=== PATIENT | female | born 1980 | race Caucasian/White ===

== ENCOUNTER 2016-03-25 10:41 | Emergency (ER) | payer OTHER ==
[2016-03-25 11:55] LABS: Hematocrit 41 % (35-47); Mean Corpuscular HGB Conc 34 g/dl (31-36); Mean Corpuscular Hemoglobin 33 pg (27-31); Mean Corpuscular Volume 96 fL (80-97); Mean Platelet Volume 9 um3 (7.4-10.4); Red Blood Count 4.27 10^6/ul (4.0-5.4); Red Cell Distribution Width 14 % (10.5-15); White Blood Count 7.4 10^3/ul (3.5-10.8)
[2016-03-25 12:06] LABS: Albumin 4.4 g/dL (3.2-5.2); BUN/Creatinine Ratio 7.6 (8-20); Calcium 10.1 mg/dL (8.6-10.3); EGFR African American 67.4 (>60); EGFR Non-African American 52.4 (>60); Globulin 3.2 g/dL (2-4); Magnesium 2.6 mg/dL (1.9-2.7); Potassium 4.2 mmol/L (3.5-5.0); Total Bilirubin 0.4 mg/dL (0.2-1.0); Total Protein 7.6 g/dL (6.4-8.9)
[2016-03-25 12:18] LABS: TSH (Thyroid Stimulating Horm) 4.02 mcIU/mL (0.34-5.60)
[2016-03-25] MEDS ORDERED: NS 0.9% 1000 ML* 2,000 ML IV ONE (13:58)
[2016-03-25 14:36] LABS: Urine Bilirubin Negative (Negative); Urine Glucose Negative (Negative); Urine Nitrite Negative (Negative)
[2016-03-25] MEDS ORDERED: Ibuprofen TAB* 600 MG PO ONE (14:41)
[2016-03-25 15:07] LABS: Benzodiazepine Urine Screen None Detected (None Detect)
--- NOTE | 2016-03-25 15:22 | ED ---
Tommy Aguirre Karl, scribed for Checo Goins MD on 03/25/16 at 1142 . Neurological HPI - HPI Summary HPI Summary: Pt is a 36 y/o female BIBA that presents to the ED c/o a seizure at approx 09: 30 this morning. Pt's father, at bedside, reported that he witness the seizure this morning after he visited the pt's house and she went to the bathroom. Father stated he visited the house and heard a "thump" in the bathroom at which point he entered and found his daughter face down on the floor convulsing. Per nursing note, pt arrives post ictal, repeditive speech, yawning frequently, and incontinent of urine. Pt potentially has not been taking her seizure medicine as prescribed per EMS due to there being more medication in the bottle than supposed to be at this time. Pt is also on siboxone and topiromax. Pt's father also noted that the pt stated she was having SMITH's before the seizure and that he noticed the pt has small bruise on her right arm and a scrape on her right side. Hx: seizures. - History of Current Complaint Chief Complaint: EDSeizure Stated Complaint: SEIZURE Time Seen by Provider: 03/25/16 11:35 Hx Obtained From: Family/Electrician Station Assistant Hx Last Menstrual Period: IUD Onset/Duration: Started hours ago, Resolved Timing: Intermittent Episodes Lasting: Onset Severity: Moderate Current Severity: None Seizure Severity: Moderate Number of Seizures: 1 Pain Intensity: 2 Pain Scale Used: 0-10 Numeric Associated Signs and Symptoms: Positive: Headache, Seizure - Additional Pertinent History Primary Care Physician: [id number] - Allergy/Home Medications Allergies/Adverse Reactions: Allergies Allergy/AdvReac Type Severity Reaction Status Date / Time No Known Allergies Allergy Verified 02/16/15 16:22 PMH/Surg Hx/FS Hx/Imm Hx Endocrine/Hematology History: Reports: Hx Thyroid Disease - Hypothyroid Denies: Hx Diabetes Cardiovascular History: Denies: Hx Hypertension Respiratory History: Denies: Hx Asthma, Hx Chronic Obstructive Pulmonary Disease (COPD) GI History: Denies: Hx Ulcer History: Reports: Other Problems/Disorders - Cervical Ca Psychiatric History: Reports: Hx Depression - Cancer History Cancer Type, Location and Year: Cervical cancer 2009 - Surgical History Surgery Procedure, Year, and Place: Cervical Cancer 2009, Infectious Disease History: Yes Infectious Disease History: Reports: Hx Hepatitis - Hepatitis C Denies: Hx Clostridium Difficile, Hx Human Immunodeficiency Virus (HIV), Hx of Known/Suspected MRSA, Hx Shingles, Hx Tuberculosis, Hx Known/Suspected VRE, Hx Known/Suspected VRSA, History Other Infectious Disease, Traveled Outside the [place] in Last 30 Days - Family History Known Family History: Positive: Cardiac Disease, Diabetes - Social History Alcohol Use: None Substance Use Type: Reports: None Hx Tobacco Use: Yes Smoking Status (MU): Heavy Every Day Tobacco Smoker Type: Cigarettes Amount Used/How Often: 1 ppd Length of Time of Smoking/Using Tobacco: 5 years Review of Systems Constitutional: Negative Eyes: Negative ENT: Negative Cardiovascular: Negative Respiratory: Negative Gastrointestinal: Negative Genitourinary: Negative Musculoskeletal: Negative Positive: Bruising Neurological: Other - seizure Positive: Headache Psychological: Normal All Other Systems Reviewed And Are Negative: Yes Physical Exam Triage Information Reviewed: Yes Vital Signs On Initial Exam: Initial Vitals Temp Pulse Resp BP Pulse Ox 97.7 F 84 28 104/60 97 03/25/16 11:01 03/25/16 11:01 03/25/16 11:01 03/25/16 11:01 03/25/16 11:01 Vital Signs Reviewed: Yes Appearance: Positive: Well-Appearing, No Pain Distress Skin: Positive: Warm, Skin Color Reflects Adequate Perfusion, Dry, Other - abrasion on right side of thorax, ecchymosis on right upper back Head/Face: Positive: Normal Head/Face Inspection Eyes: Positive: EOMI - 2-3 mm, HERNAN ENT: Positive: Normal ENT inspection Neck: Positive: Supple, Nontender Respiratory/Lung Sounds: Positive: Clear to Auscultation, Breath Sounds Present Cardiovascular: Positive: RRR Abdomen Description: Positive: Nontender, Soft Bowel Sounds: Positive: Present Musculoskeletal: Positive: Normal Neurological: Positive: Other - twitching, slurred speech Psychiatric: Positive: Normal, Affect/Mood Appropriate - [place] Coma Scale Coma Scale Total: 15 Diagnostics - Vital Signs Vital Signs Temp Pulse Resp BP Pulse Ox 03/25/16 11:01 97.7 F 84 28 104/60 97 - Laboratory Lab Results: Lab Results 03/25/16 03/25/16 03/25/16 Range/Units 10:55 10:55 10:55 WBC 7.4 (3.5-10.8) 10^3/ul RBC 4.27 (4.0-5.4) 10^6/ul Hgb 14.0 (12.0-16.0) g/dl Hct 41 (35-47) % MCV 96 (80-97) fL MCH 33 H (27-31) pg MCHC 34 (31-36) g/dl RDW 14 (10.5-15) % Plt Count 200 (150-450) 10^3/ul MPV 9 (7.4-10.4) um3 Neut % (Auto) 88.7 H (38-83) % Lymph % (Auto) 8.2 L (25-47) % Parker % (Auto) 2.7 (1-9) % Eos % (Auto) 0.2 (0-6) % Baso % (Auto) 0.2 (0-2) % Absolute Neuts (auto) 6.5 (1.5-7.7) 10^3/ul Absolute Lymphs (auto) 0.6 L (1.0-4.8) 10^3/ul Absolute Monos (auto) 0.2 (0-0.8) 10^3/ul Absolute Eos (auto) 0 (0-0.6) 10^3/ul Absolute Basos (auto) 0 (0-0.2) 10^3/ul Absolute Nucleated RBC 0 10^3/ul Nucleated RBC % 0.1 INR (Anticoag Therapy) 0.95 (0.89-1.11) Sodium 135 (133-145) mmol/L Potassium 4.2 (3.5-5.0) mmol/L Chloride 110 (101-111) mmol/L Carbon Dioxide 16 L (22-32) mmol/L Anion Gap 9 (2-11) mmol/L BUN 9 (6-24) mg/dL Creatinine 1.18 H (0.51-0.95) mg/dL Est GFR ( Amer) 67.4 (>60) Est GFR (Non-Af Amer) 52.4 (>60) BUN/Creatinine Ratio 7.6 L (8-20) Glucose 112 H (70-100) mg/dL Lactic Acid (0.5-2.0) mmol/L Calcium 10.1 (8.6-10.3) mg/dL Magnesium 2.6 (1.9-2.7) mg/dL Total Bilirubin 0.40 (0.2-1.0) mg/dL AST 18 (13-39) U/L ALT 12 (7-52) U/L Alkaline Phosphatase 46 (34-104) U/L Total Creatine Kinase 65 (10-223) U/L Total Protein 7.6 (6.4-8.9) g/dL Albumin 4.4 (3.2-5.2) g/dL Globulin 3.2 (2-4) g/dL Albumin/Globulin Ratio 1.4 (1-3) TSH 4.02 (0.34-5.60) mcIU/mL Urine Color Urine Appearance Urine pH (5-9) Ur Specific [place] (1.010-1.030) Urine Protein (Negative) Urine Ketones (Negative) Urine Blood (Negative) Urine Nitrate (Negative) Urine Bilirubin (Negative) Urine Urobilinogen (Negative) Ur Leukocyte Esterase (Negative) Urine Glucose (Negative) Urine Opiates Screen (None Detect) Ur Barbiturates Screen (None Detect) Ur Phencyclidine Scrn (None Detect) Ur Amphetamines Screen (None Detect) U Benzodiazepines Scrn (None Detect) Urine Cocaine Screen (None Detect) U Cannabinoids Screen (None Detect) 03/25/16 03/25/16 03/25/16 Range/Units 10:55 14:28 14:28 WBC (3.5-10.8) 10^3/ul RBC (4.0-5.4) 10^6/ul Hgb (12.0-16.0) g/dl Hct (35-47) % MCV (80-97) fL MCH (27-31) pg MCHC (31-36) g/dl RDW (10.5-15) % Plt Count (150-450) 10^3/ul MPV (7.4-10.4) um3 Neut % (Auto) (38-83) % Lymph % (Auto) (25-47) % Parker % (Auto) (1-9) % Eos % (Auto) (0-6) % Baso % (Auto) (0-2) % Absolute Neuts (auto) (1.5-7.7) 10^3/ul Absolute Lymphs (auto) (1.0-4.8) 10^3/ul Absolute Monos (auto) (0-0.8) 10^3/ul Absolute Eos (auto) (0-0.6) 10^3/ul Absolute Basos (auto) (0-0.2) 10^3/ul Absolute Nucleated RBC 10^3/ul Nucleated RBC % INR (Anticoag Therapy) (0.89-1.11) Sodium (133-145) mmol/L Potassium (3.5-5.0) mmol/L Chloride (101-111) mmol/L Carbon Dioxide (22-32) mmol/L Anion Gap (2-11) mmol/L BUN (6-24) mg/dL Creatinine (0.51-0.95) mg/dL Est GFR ( Amer) (>60) Est GFR (Non-Af Amer) (>60) BUN/Creatinine Ratio (8-20) Glucose (70-100) mg/dL Lactic Acid 3.6 H* (0.5-2.0) mmol/L Calcium (8.6-10.3) mg/dL Magnesium (1.9-2.7) mg/dL Total Bilirubin (0.2-1.0) mg/dL AST (13-39) U/L ALT (7-52) U/L Alkaline Phosphatase (34-104) U/L Total Creatine Kinase (10-223) U/L Total Protein (6.4-8.9) g/dL Albumin (3.2-5.2) g/dL Globulin (2-4) g/dL Albumin/Globulin Ratio (1-3) TSH (0.34-5.60) mcIU/mL Urine Color Yellow Urine Appearance Clear Urine pH 6.0 (5-9) Ur Specific [place] 1.026 (1.010-1.030) Urine Protein Negative (Negative) Urine Ketones 2+ H (Negative) Urine Blood Negative (Negative) Urine Nitrate Negative (Negative) Urine Bilirubin Negative (Negative) Urine Urobilinogen Negative (Negative) Ur Leukocyte Esterase Negative (Negative) Urine Glucose Negative (Negative) Urine Opiates Screen None detected (None Detect) Ur Barbiturates Screen None detected (None Detect) Ur Phencyclidine Scrn None detected (None Detect) Ur Amphetamines Screen None detected (None Detect) U Benzodiazepines Scrn None detected (None Detect) Urine Cocaine Screen None detected (None Detect) U Cannabinoids Screen None detected (None Detect) Result Diagrams: 03/25/16 10:55 03/25/16 10:55 Lab Statement: Any lab studies that have been ordered have been reviewed, and results considered in the medical decision making process. Course/Dx - Course Course Of Treatment: Ms. Celaya presented after a witnessed seizure at home. She presented post-ictal and slowly but gradually improved. Her W/U is negative for a precipitating factor and I anticipate D/C after she improves a bit more. She should F/U with her neurologist for any medication changes. - Diagnoses Provider Diagnoses: Breakthrough seizure - Physician Notifications Discussed Care of Patient With: Dr. Rucker - [id number], Dr. Jnasen - Change of shift. Discharge - Discharge Plan Condition: Stable Disposition: HOME Patient Education Materials: Recurrent Seizures in Adults (ED) Referrals: Jerel Raymond MD [Primary Care Provider] - Additional Instructions: Please follow up with your neurologist. Return to the emergency department for changing or worsening symptoms. The documentation as recorded by the Tommy harden Karl accurately reflects the service I personally performed and the decisions made by Buster glez Richard L, MD.
--- NOTE | 2016-03-25 15:34 | RAD ---
INDICATION: Trauma. COMPARISON: There are no prior studies available for comparison. TECHNIQUE: 5 views of the lumbar spine were obtained including lateral, oblique, AP and a coned-down lateral view of the lumbar sacral junction. FINDINGS: The vertebra are in normal alignment. No fracture is seen. There is moderate disc space narrowing and endplate hypertrophic changes at the L5-S1 level consistent with moderate degenerative disc disease. There is a T-shaped IUD which projects over the pelvis. IMPRESSION: NO EVIDENCE FOR FRACTURE.
[2016-03-25 16:31] VITALS: BP 97/61
== END 2016-03-25 16:42 | disposition home or self-care (01) ==
LOC: ED 10:41
DX: G40.909 Epilepsy, unspecified, not intractable, without status epilepticus (principal); E03.9 Hypothyroidism, unspecified; Z85.41 Personal history of malignant neoplasm of cervix uteri; F32.9 Major depressive disorder, single episode, unspecified; F17.210 Nicotine dependence, cigarettes, uncomplicated
CPT/HCPCS: 36415; 72110; 80053; 80177; 80307; 81003; 82550; 83605; 83735; 84443; 85025; 85610; 99285; A9270-GY

== ENCOUNTER 2016-05-27 17:18 | Emergency (ER) | payer OTHER ==
[2016-05-27 17:37] VITALS: BP 107/76
[2016-05-27] MEDS ORDERED: Ibuprofen TAB* 400 MG PO ONE (17:54)
--- NOTE | 2016-05-27 17:54 | UC ---
Throat Pain/Nasal [place] HPI - HPI Summary HPI Summary: complaint of nasal congestion and cough that started 2 days ago constant headache nauseated and vomited 2x last nioght fever of 102.7 entire body feels achy, extremely foatgiued denies diarrhea unable to smoke her usual number of cigarettes- hearing wheezing - sometimes uncontrollable coughing taking tylenol with some relief-last dose 1:00 today son has influenza - History of Current Complaint Chief Complaint: UCRespiratory Stated Complaint: FEVER Time Seen by Provider: 05/27/16 17:48 Hx Obtained From: Patient Hx Last Menstrual Period: IUD - Allergies/Home Medications Allergies/Adverse Reactions: Allergies Allergy/AdvReac Type Severity Reaction Status Date / Time No Known Allergies Allergy Verified 05/27/16 17:37 Home Medications: Home Medications Acetaminophen [Mapap] 1,000 mg PO PRN 05/27/16 [History] Buprenorphine/Naloxone SL TAB* [Suboxone 8-2 mg SL TAB*] 05/27/16 [History] Levothyroxine TAB* [Synthroid 75 MCG TAB*] 75 mcg PO DAILY 05/27/16 [History Confirmed 05/27/16] Topiramate TAB(*) [Topamax 25 MG tab] 4 tab PO BEDTIME 05/27/16 [History Confirmed 05/27/16] Topiramate TAB(*) [Topamax 25 MG tab] 50 mg PO QAM 05/27/16 [History Confirmed 05/27/16] PMH/Surg Hx/FS Hx/Imm Hx Previously Healthy: Yes Endocrine History Of: Reports: Thyroid Disease - HYPOTHYROID Denies: Diabetes Cardiovascular History Of: Denies: Cardiac Disorders, Hypertension, Pacemaker/ICD Respiratory History Of: Denies: COPD, Asthma GI/ History Of: Denies: Ulcer, Renal Disease Psychological History Of: Reports: Depression Cancer History Of: Reports: Cervical Cancer Other History Of: Hepatitis C - Surgical History Surgical History: Yes Surgery Procedure, Year, and Place: Cervical Cancer 2009 - Family History Known Family History: Positive: Cardiac Disease, Diabetes Negative: Hypertension - Social History Occupation: Employed Full-time Lives: With Family Alcohol Use: None Substance Use Type: None Smoking Status (MU): Current Every Day Smoker Type: Cigarettes Amount Used/How Often: 1 ppd Length of Time of Smoking/Using Tobacco: 5 years - Immunization History Most Recent Influenza Vaccination: 2014 Most Recent Tetanus Shot: 2014 Most Recent Pneumonia Vaccination: unknown Review of Systems Constitutional: Fever, Chills, Fatigue Skin: Negative Eyes: Negative ENT: Nasal Discharge Respiratory: Cough Cardiovascular: Negative Gastrointestinal: Vomiting Genitourinary: Negative Motor: Negative Neurovascular: Negative Musculoskeletal: Negative Neurological: Headache Psychological: Negative All Other Systems Reviewed And Are Negative: Yes Physical Exam Triage Information Reviewed: Yes Appearance: Well-Nourished, Ill-Appearing, Obese Vital Signs: Initial Vital Signs Temp 98.1 F 05/27/16 17:33 Pulse 85 05/27/16 17:33 Resp 16 05/27/16 17:33 BP 107/76 05/27/16 17:33 Pulse Ox 98 05/27/16 17:33 Vital Signs Reviewed: Yes Eyes: Positive: Conjunctiva Clear ENT: Positive: Pharyngeal erythema, Nasal congestion, Nasal drainage, TMs normal Neck: Positive: No Lymphadenopathy Respiratory: Positive: Normal breath sounds, No respiratory distress, No accessory muscle use, Wheezing - both upper lobes Cardiovascular: Positive: RRR, No Murmur, Pulses Normal Abdomen Description: Positive: Nontender, No Organomegaly, Soft. Negative: CVA Tenderness (R), CVA Tenderness (L), Distended, Guarding Bowel Sounds: Positive: Present Musculoskeletal: Positive: No Edema Neurological: Positive: Alert Psychological Exam: Normal Skin Exam: Normal Throat Pain/Nasal Course/Dx - Differential Dx/Diagnosis Differential Diagnosis/HQI/PQRI: Influenza, URI, Other - viral syndrome Provider Diagnoses: influenza Discharge - Discharge Plan Condition: Stable Disposition: HOME Prescriptions: Albuterol HFA INHALER* [Ventolin HFA Inhaler*] 2 puff INH Q4H PRN #1 mdi PRN Reason: Wheezing Ondansetron HCl [Zofran 4 MG TAB] 4 mg PO Q6HR PRN #12 tab PRN Reason: Nausea Spacer/Aerosol-Holding Chamber [Aerochamber Mv] 1 mis XX Q4HR #1 mis Patient Education Materials: Influenza (ED) Forms: *Work Release Referrals: Jerel Raymond MD [Primary Care Provider] - Additional Instructions: Use your albuterol inhaler every 4-6 hours when needed for wheezing, shortness of breath or uncontrolled coughing. take zofran as needed for nausea Increase fluids and rest Please review your discharge instructions. If your symptoms do not improve please call your primary care provider or return to urgent care. TREATING THE FLU (Influenza) What is the Flu? Influenza, or "flu," is an infection of the breathing tubes and lungs. Flu happens mostly in late fall, winter, or early spring. It is very easily spread from one person to another by coughing and sneezing. The flu affects people of all ages. Symptoms Might Include: Stuffed up or runny nose Cough which may be worse at night that lasts for one to two weeks Fever especially the first 2 days and which may go up and down Headache and muscle aches Mild sore throat Poor appetite Tiredness Influenza (Flu) Vaccine Much of the illness and caused by influenza can be prevented by annual flu vaccination. It is especially recommended for people who are at high risk. Those at higher risk include all people aged 65 years or older and people of any age with chronic diseases of the heart, lung or kidneys, diabetes, immunosuppression, or severe forms of anemia. Other high-risk groups are, women who will be more than 3 months during the flu season, and children. Treatment Recommendations: Take acetaminophen (Tylenol, etc.) for aches and fever. Do not ever give aspirin to children. Drink lots of fluids. Use a cool-mist humidifier night and day if it helps you. Keep room at a comfortable temperature for you. Do not overheat the room. Do not overdress. Do not smoke. Get as much rest as you can. Call Your Doctor or Return Here IF: You have a fever that lasts for more than three days. You have trouble breathing. You begin to cough up green, yellow, or red mucous. Your cough gets worse or you have chest pain with coughing or deep breathing. You start to have any other symptoms that worry you.
[2016-05-27] MEDS ORDERED: Ondansetron TAB* 4 MG PO ONE (17:58)
[2016-05-27] MEDS ORDERED: Albuterol/Ipratropium NEB.SOL* Albuterol 2.5 MG/Ipratropium 0.5 MG 3 ML INH ONE (17:59)
[2016-05-27] MEDS ORDERED: Ondansetron ODT TAB* 4 MG ONE (18:13)
[2016-05-27] MEDS ORDERED: Ondansetron ODT TAB* 4 MG PO ONE (18:25)
== END 2016-05-27 18:41 | disposition home or self-care (01) ==
LOC: UCEAST 17:18
DX: J11.1 Influenza due to unidentified influenza virus with other respiratory manifestations (principal); E03.9 Hypothyroidism, unspecified; E66.9 Obesity, unspecified; F17.210 Nicotine dependence, cigarettes, uncomplicated
CPT/HCPCS: 87502; 99213; A9270-GY; G0463

== ENCOUNTER 2017-06-29 10:40 | Observation (INO) | payer OTHER ==
[2017-06-29] MEDS ORDERED: LORazepam INJ* 2 MG/ML 1 ML VIAL ONE (10:58)
[2017-06-29] MEDS ORDERED: NS 0.9% 1000 ML* 1,000 ML IV ONE ×2 (11:00→11:01)
[2017-06-29] MEDS ORDERED: LORazepam INJ* 2 MG/ML 1 ML VIAL IV PUSH ONE (11:03)
[2017-06-29 11:16] LABS: ABS Basophils 0 10^3/ul (0-0.2); ABS Eosinophils 0.1 10^3/ul (0-0.6); ABS Lymphocytes 1.7 10^3/ul (1.0-4.8); ABS Monocytes 0.3 10^3/ul (0-0.8); ABS Neutrophils 4.6 10^3/ul (1.5-7.7); ABS Nucleated RBC 0 10^3/ul; Eosinophil % 1.2 % (0-6); Hematocrit 44 % (35-47); Hemoglobin 14.7 g/dl (12.0-16.0); Lymphocyte % 25.3 % (25-47); Mean Corpuscular HGB Conc 34 g/dl (31-36); Mean Corpuscular Hemoglobin 33 pg (27-31); Mean Corpuscular Volume 99 fL (80-97); Mean Platelet Volume 7.4 um3 (7.4-10.4); Nucleated Red Blood Cells % 0; Platelet Count 233 10^3/ul (150-450); Red Blood Count 4.41 10^6/ul (4.0-5.4); Red Cell Distribution Width 14 % (10.5-15); White Blood Count 6.7 10^3/ul (3.5-10.8)
[2017-06-29] MEDS ORDERED: levETIRAcetam IV* 1,000 MG in NS 0.9% 100 ML* 100 ML IVPB ONE (11:30)
--- NOTE | 2017-06-29 12:23 | RAD ---
INDICATION: Status epilepticus. COMPARISON: Comparison is made with a prior CT of the brain from February 14, 2016. TECHNIQUE: Contiguous axial sections of the brain were obtained from the skull base to the vertex without contrast. FINDINGS: The ventricles, cisterns and sulci are within normal limits. No significant focal abnormality or mass effect is seen. There is no evidence for hemorrhage. No significant focal osseous abnormality is seen. The visualized portion of the paranasal sinuses and mastoid air cells appear clear. IMPRESSION: NO EVIDENCE FOR ACUTE INTRACRANIAL ABNORMALITY.
--- NOTE | 2017-06-29 12:38 | ED ---
Grady Aguirre Stephanie, scribed for Giancarlo Smyth MD on 06/29/17 at 1107 . Neurological HPI - HPI Summary HPI Summary: The pt is a 37 y/o F BIBA to the ED with c/o seizure that occurred at 10:30 today. Per , the pt had a seizure at home and when [facility] arrived she had another one that lasted 30 seconds. Symptoms include fatigue and SMITH. She denies falling. The pt has a hx of seizures. She states this seizure is different from past seizures. - History of Current Complaint Stated Complaint: SEIZURE Time Seen by Provider: 06/29/17 10:51 Hx Obtained From: Patient, Family/Hotel Server, EMS Hx Last Menstrual Period: IUD Onset/Duration: Sudden Onset, Started hours ago Timing: Intermittent Episodes Lasting: - seconds Current Severity: Moderate Number of Seizures: 2 Neurological Deficit Location: Generalized Headache Location: Diffuse (Right), Diffuse (Left) Seizure Character: Generalized Aggravating: Nothing Alleviating: Nothing Associated Signs and Symptoms: Positive: Headache, Seizure - Additional Pertinent History Primary Care Physician: [id number] - Allergy/Home Medications Allergies/Adverse Reactions: Allergies Allergy/AdvReac Type Severity Reaction Status Date / Time No Known Allergies Allergy Verified 06/29/17 11:02 Home Medications: Home Medications Buprenorphine HCl/Naloxone HCl [Suboxone 8 mg-2 mg Sl Film] 0.5 tab.sl SL QPM [History Confirmed 06/29/17] PMH/Surg Hx/FS Hx/Imm Hx Endocrine/Hematology History: Reports: Hx Thyroid Disease - HYPOTHYROID Denies: Hx Diabetes Cardiovascular History: Denies: Hx Hypertension, Hx Pacemaker/ICD Respiratory History: Denies: Hx Asthma, Hx Chronic Obstructive Pulmonary Disease (COPD) GI History: Denies: Hx Ulcer History: Reports: Other Problems/Disorders - Cervical Ca Denies: Hx Renal Disease Sensory History: Denies: Hx Hearing Aid Psychiatric History: Reports: Hx Depression Denies: Hx Panic Disorder - Cancer History Cancer Type, Location and Year: Cervical cancer 2009 - Surgical History Surgery Procedure, Year, and Place: Cervical Cancer 2009 Infectious Disease History: Reports: Hx Hepatitis - Hepatitis C Denies: Hx Clostridium Difficile, Hx Human Immunodeficiency Virus (HIV), Hx of Known/Suspected MRSA, Hx Shingles, Hx Tuberculosis, Hx Known/Suspected VRE, Hx Known/Suspected VRSA, History Other Infectious Disease, Traveled Outside the [place] in Last 30 Days - Family History Known Family History: Positive: Cardiac Disease, Diabetes Negative: Hypertension - Social History Occupation: Unemployed Lives: With Family Alcohol Use: None Substance Use Type: Reports: None Hx Tobacco Use: Yes Smoking Status (MU): Current Every Day Smoker Type: Cigarettes Amount Used/How Often: 1 ppd Length of Time of Smoking/Using Tobacco: 5 years Review of Systems Positive: Fatigue. Negative: Fever Positive: Headache All Other Systems Reviewed And Are Negative: Yes Physical Exam - Summary Physical Exam Summary: Appearance: Mildly ill-appearing, mild/moderate pain distress, not incontinent, currently post-ictal Skin: warm, dry, reflects adequate perfusion Head/face: Involuntary twitching both sides of face Eyes: EOMI, HERNAN ENT: Severely dry mucous membranes Neck: supple, non-tender Respiratory: CTA, breath sounds present Cardiovascular: RRR, pulses symmetrical Abdomen: non-tender, soft Bowel Sounds: present Musculoskeletal: normal, strength/ROM intact, no joint pain Neuro: normal, sensory motor intact, A&Ox3 Triage Information Reviewed: Yes Vital Signs On Initial Exam: Initial Vitals Resp 20 06/29/17 11:03 Vital Signs Reviewed: Yes Diagnostics - Vital Signs Vital Signs Temp Pulse Resp BP Pulse Ox 06/29/17 11:19 98.7 F 86 16 105/52 99 06/29/17 11:03 20 - Laboratory Lab Results: Lab Results 06/29/17 06/29/17 06/29/17 Range/Units 11:08 11:08 11:08 WBC 6.7 (3.5-10.8) 10^3/ul RBC 4.41 (4.0-5.4) 10^6/ul Hgb 14.7 (12.0-16.0) g/dl Hct 44 (35-47) % MCV 99 H (80-97) fL MCH 33 H (27-31) pg MCHC 34 (31-36) g/dl RDW 14 (10.5-15) % Plt Count 233 (150-450) 10^3/ul MPV 7.4 (7.4-10.4) um3 Neut % (Auto) 69.1 (38-83) % Lymph % (Auto) 25.3 (25-47) % [place] % (Auto) 4.2 (0-7) % Eos % (Auto) 1.2 (0-6) % Baso % (Auto) 0.2 (0-2) % Absolute Neuts (auto) 4.6 (1.5-7.7) 10^3/ul Absolute Lymphs (auto) 1.7 (1.0-4.8) 10^3/ul Absolute Monos (auto) 0.3 (0-0.8) 10^3/ul Absolute Eos (auto) 0.1 (0-0.6) 10^3/ul Absolute Basos (auto) 0 (0-0.2) 10^3/ul Absolute Nucleated RBC 0 10^3/ul Nucleated RBC % 0 Sodium Pending Potassium Pending Chloride Pending Carbon Dioxide Pending Anion Gap Pending BUN Pending Creatinine Pending Est GFR ( Amer) Pending Est GFR (Non-Af Amer) Pending BUN/Creatinine Ratio Pending Glucose Pending Calcium Pending Ionized Calcium 4.71 (4.65-5.28) mg/dL Phosphorus 2.0 L (2.5-5.0) mg/dL Magnesium 2.6 (1.9-2.7) mg/dL Total Creatine Kinase 87 (10-223) U/L TSH 8.36 H (0.34-5.60) mcIU/mL Free T4 Pending Free T3 Cancelled Total T3 Pending Result Diagrams: 06/29/17 11:08 06/29/17 11:08 Lab Statement: Any lab studies that have been ordered have been reviewed, and results considered in the medical decision making process. Re-Evaluation - Re-Evaluation First Eval Change: Improved - After Ativan myoclonus has gone away and mental status has improved Course/Dx - Course Course Of Treatment: Patient arrived after 2 seizures having significant myoclonus and alteration of mental status. She was given Ativan which actually improved her mental status and resolved the mild clonus. I discussed the case with neurology and we loaded her with IV Keppra. CT scan was unrevealing. CKs are not elevated. Hospitalist consulted and will see the patient in the ER for admission. - Differential Dx Differential Diagnoses Neuro: Positive: Drug Toxicity, Encephalitis, Metabolic Abnormality, Seizure Disorder - Diagnoses Provider Diagnoses: Status epilepticus, Generalized convulsive seizure - Physician Notifications Discussed Care Of Patient With: Jennie Hesterda Time Discussed With Above Provider: 11:31 Instructed by Provider To: Admit As Inpatient - Critical Care Time Critical Care Time: 30-74 min - Critical care time is exclusive of separately billable procedures Discharge - Sign-Out/Discharge Documenting (check all that apply): Discharge/Admit/Transfer - Admit - Discharge Plan Condition: Stable Disposition: ADMITTED TO [facility] Referrals: Jerel Raymond MD [Primary Care Provider] - - Billing Disposition and Condition Condition: STABLE Disposition: [facility] [place] The documentation as recorded by the Grady harden Stephanie accurately reflects the service I personally performed and the decisions made by Libra glez Kirk, MD.
[2017-06-29] MEDS ORDERED: Buprenorphine/Naloxone 8-2 MG SL TAB* 1 TAB SL SCH ×3 (13:00→21:00)
[2017-06-29] MEDS ORDERED: BuPROPion XL* 150 MG TAB.XL PO SCH (13:00)
[2017-06-29 13:19] LABS: EGFR Non-African American 51.6 (>60)
[2017-06-29] MEDS: Gabapentin CAP(*) 300 MG PO SCH ×3 (14:37→20:26)
[2017-06-29] MEDS: Buprenorphine/Naloxone 8-2 MG SL TAB* 1 TAB SL SCH (14:38)
--- NOTE | 2017-06-29 15:49 | HP ---
HISTORY AND PHYSICAL: DATE OF ADMISSION: 06/29/17 ADMITTING PROVIDER: Messi Gallagher MD PRIMARY CARE PROVIDER: Formerly, Jerel Raymond; currently, Dr. Rito Rodriguze. OUTPATIENT NEUROLOGIST: Dr. John. CHIEF COMPLAINT: Observed seizures. HISTORY OF PRESENT ILLNESS: Gerardo Celaya is a 37-year-old female with a past medical history of epilepsy, former IV drug use, currently on Suboxone, depression, hypothyroidism, who was observed morning of admission by her 18-year -old son having a suspected seizure. EMS was called. She had postictal confusion and had a 30- second episode of twitching that was observed by EMS. On arrival to emergency room, Dr. Smyth gave 2 mg of Ativan given her myoclonic twitching, which improved. The neurologist, Dr. Madison was consulted and recommended loading with 1 g of Keppra, CT head, admission and EEG. She referred to hospitalist service for admission. The patient is still somewhat confused, oriented to name, [facility], 2017, thinks it is April, could not remember the name of the vice president fixed income or the events of the day. The patient denies any new medications. She last saw Dr. John several months ago. The patient reported started Topamax approximately six months ago. Last seizure was "a few months ago." The patient denies any fever, chills, chest pain or shortness of breath. Does have some chronic back pains and some left lower quadrant pains. CT of the head in the emergency room demonstrates no acute intracranial abnormality. She now states that she was stung by a bee or a wasp yesterday, the day prior to admission, and also that one of her other seizures was preceded by a bee sting, although not every seizure has been preceded by a bee sting. PAST MEDICAL HISTORY: Epilepsy, history of IV drug use, currently on Suboxone, hypothyroidism, anxiety and depression, current smoker one pack per day. MEDICATIONS: Include: 1. Suboxone 8-2 mg sublingual tab, one tab in the morning and half tab at night. 2. Albuterol 2 puffs inhaled q.4 hours p.r.n. 3. Topamax 50 mg p.o. b.i.d. 4. Synthroid 75 mcg p.o. daily. 5. Gabapentin 600 mg p.o. q.i.d. 6. Bupropion 300 mg p.o. daily. ALLERGIES: No known drug allergies. FAMILY HISTORY: Mother and father both with depression. Her youngest son age 6 of seizures. She has three other sons that she lives with who are in good health. SOCIAL HISTORY: The patient smokes one pack per day. Denies significant alcohol abuse history or drinking, history of IV heroin abuse. She lives with her three children. She is a homemaker. Her father, Subhash Juan, is her medical surrogate. The patient is a full code. REVIEW OF SYSTEMS: A complete 14-point review of systems is negative except as per HPI though she is limited by short-term memory loss. PHYSICAL EXAMINATION GENERAL APPEARANCE: No acute distress. VITAL SIGNS: Temperature 98.7, pulse rate 86, respiratory rate 16 to 20, satting 99% on room air, and blood pressure 105/52. HEENT: Normocephalic, atraumatic. Pupils are equally round and reactive to light. Extraocular motions intact. No scleral icterus. Mucous membranes moist. NECK: Supple. No neck rigidity. PULMONARY: Clear to auscultation bilaterally with no wheezing, rales or rhonchi. CARDIOVASCULAR: Regular rate and rhythm. No murmurs, rubs or gallops. ABDOMEN: Soft, nondistended. Mild tenderness in the left lower quadrant. EXTREMITIES: Warm and well perfused. No peripheral edema. NEUROLOGIC: Cranial nerves II through XII intact. Brass Cutter strength 5/5. Hip flexion, dorsiflexion and plantar flexion of the feet 5/5. Sensation intact. The patient is oriented to place and name, but not month. She is oriented to 2018, but not present. DIAGNOSTIC STUDIES/LAB DATA: White count 6.7, hemoglobin 14.7, hematocrit 44. RDW 14, MCV 99. Ionized calcium 4.7, phosphorus 2.0, magnesium 2.6. CK 87. TSH 8.36. Imaging: CT head demonstrates no acute process. ASSESSMENT AND PLAN: Gerardo Celaya is a 37-year-old female with a past medical history of epilepsy, former IV drug use, on Suboxone, anxiety and depression, presenting with two seizures, one observed with EMS, was stung by a bee the day prior to admission, which seemed to have been a trigger in the past. She is on a low dose of Topamax. Appreciate Neurology, Dr. Madison's recommendations. She has been loaded with Keppra, we will get an EEG. CT head was without acute process. She is being admitted to observation status. We will continue her gabapentin, which if interrupted can cause seizures with abrupt withdrawal. She is on 600 q.i.d. We will continue Wellbutrin 300 mg for anxiety and depression. Continue her Synthroid 75 mcg daily. Her TSH is slightly elevated at 8.36. We will add a total T3 and free T4. We will follow up on her urine drug screen and get a BMP. She is being admitted to observation status. She is a full code. Her medical surrogate is Subhash Juan. She can eat a regular diet. We will continue her Suboxone one tab in the morning and half tab at night, if formulary can provide. [id number]/[facility] #: [id number] MTDD
[2017-06-29] MEDS ORDERED: Acetaminophen TAB* 325 MG PO PRN (17:30)
--- NOTE | 2017-06-29 18:51 | CONS ---
CONSULTATION REPORT: DATE OF CONSULT: 06/29/17 CONSULTING PHYSICIANS: 1. Messi Gallagher MD 2. Giancarlo Smyth MD REASON FOR CONSULT: Neurology was consulted to evaluate for seizures. The history was obtained by the patient and by reviewing the electronic medical records. CHIEF COMPLAINT: Seizure. HISTORY OF PRESENT ILLNESS: Gerardo Celaya is a 37-year-old right-handed female with history of former narcotic dependency, who is currently on Suboxone , questionable history of epilepsy since approximately 1-2 years ago after the of her 6-year-old child who due to seizures. She presented this morning with a breakthrough seizure. The patient cannot recall the incident. The patient stated that her 16-year-old son may have witnessed generalized seizure-like activity and called EMS. She denied any tongue laceration or urinary incontinence. This occurred at approximately 1030 today. The seizure activity was reported to last about 1 minute. She complained of fatigue and headache following the seizure. The patient then had another breakthrough seizure in the ED and was given 2 mg of Ativan. She had myoclonic jerks of the upper and lower extremities lasting for 30-60 seconds. After the Ativan, the described myoclonic jerks of the upper and lower extremities resolved. She was loaded with Keppra in the ED. She had a CT head that was unremarkable. The patient has no family history of epilepsy. Her previous history prior to this presentation was 4 months ago. She was evaluated by Dr. Gato John, Neurology, in the past. DIAGNOSTIC STUDIES/LAB DATA: Labs and imaging were dictated in the HPI The patient had a WBC of 6.7. Glucose of 126. TSH of 8.36, free T4 is normal.She reports having an MRI that was unremarkable. The MRI was done on 03/17/17. The MRI showed that the mesiotemporal lobes were symmetric and no appreciable cortical dysplasia or heterotopia was seen. The MRI was done without contrast. The patient did have a CT head today on 06/29/17. I personally reviewed the image. There was no evidence of acute intracranial abnormality. PAST MEDICAL HISTORY: Consists of anxiety, thyroid disease, and as mentioned in the HPI. PAST SURGICAL HISTORY: Cervical cancer in 2010. MEDICATIONS: After reviewing the medications, the patient is taking Wellbutrin 300 mg daily. SOCIAL HISTORY: The patient lives with her 3 children. She is unemployed. She does smoke 1 pack per day for the last 5 years. She denied any alcohol use. REVIEW OF SYSTEMS: A 10-point review of systems was obtained and otherwise negative except for what was mentioned in the HPI. PHYSICAL EXAM: Vitals: T: 97.5, Pulse 79, RR 16, BP 100/48. General: Well- nourished, well-developed, alert to self and place, but appears slightly lethargic and confused. She can easily be redirected. Head: Atraumatic, normocephalic. Eyes: Conjunctivae and cornea are clear. Supple and symmetrical neck. No carotid bruit. Clear to auscultation bilaterally lungs. Cardiovascular: Regular rate and rhythm. Normal S1, S2. Normal range of motion with no cyanosis of the extremities. She has no skin lesion or laceration. Her affect is broad and normal mood. Neurological Examination: Mental Status: She is awake, alert to self and place, but not oriented to time. She notices that she has some memory problems since the seizure. Her speech and language though including expression, naming, repetition, and comprehension were found to be normal. Cranial Nerves: Normal confrontation bilaterally. Pupils mid range and reactive to light. Extraocular muscles are intact. No ptosis. Sensation is intact in the forehead. There is no facial droop. She is able to hear throughout the history process. She has symmetrical palatal elevation. Normal strength against resistance. The tongue is symmetrical and midline with no atrophy or fasciculation. Motor Examination : No abnormal movements. No pronator drift. Normal bulk and tone throughout. She has got 5/5 strength throughout. Reflexes 2+ in the brachioradialis, biceps, triceps, patellae, and 1+ at the ankle bilaterally. Plantar flexor response bilaterally. Sensation is intact to light touch throughout. There is normal vibratory and proprioception at the great toes. Coordination: Normal [id number] and rapid alternating movements. Gait and station: Narrow based. I assessed the patient, she was able to walk to the bathroom independently. ASSESSMENT: This is a pleasant 37-year-old right-handed female who has a reported history of seizure-like activity in the past. She presents with what I suspect is a breakthrough seizure. The patient is currently taking Wellbutrin. Wellbutrin can lower the seizure threshold. Furthermore, she is only on Topamax 50 mg twice daily, which is not an effective dose of her seizure prophylaxis. 1. Possible breakthrough seizure in the setting of Wellbutrin use. The patient has no evidence of any significant electrolyte imbalance or infectious etiology. 2. Memory loss, which I suspect could be related to postictal state, there was no reported head injury, so I doubt this is a concussion. However, maybe she is currently experiencing some side effects of cognitive slowing related to Topamax. 3. Subclinical hypothyroidism. She should follow up with her PCP and I will defer this to the primary team. PLAN: The patient was loaded with Keppra 1000 mg x1. I recommend continuing Keppra 500 mg p.o. twice daily. The side effects of Keppra include, but are not limited to irritability and worsening of any psychiatric condition. The patient denied any active depression. I will reduce the dose of Topamax to 50 mg at night and possibly consider discontinuing the medication after a few weeks. I will also wean her off Wellbutrin. However, she should discuss this further with her psychiatrist. In the meantime, we will keep her on Wellbutrin 150 mg instead of 300 daily. We discussed seizure precautions. I informed her that she should not be driving. Continue supportive care and neuro checks every 4 hours. Continue seizure precautions. I will continue to follow. [id number]/[facility] #: [id number] JERICHO
[2017-06-29] MEDS ORDERED: Nicotine Inhaler* 10 MG AMP INH PRN (20:30)
[2017-06-29] MEDS ORDERED: Mouth Piece, Nicotine* 1 EACH CARTRIDGE INH PRN (20:30)
[2017-06-29] MEDS ORDERED: Topiramate TAB(*) 25 MG PO SCH (21:00)
[2017-06-29] MEDS ORDERED: levETIRAcetam TAB* 500 MG PO SCH (21:00)
[2017-06-30 00:07] LABS: Urine Appearance Clear; Urine Blood Negative (Negative); Urine Color Yellow; Urine Ketones Trace (Negative); Urine Protein Negative (Negative); Urine Specific Gravity 1.014 (1.010-1.030); Urine Urobilinogen Negative (Negative)
[2017-06-30] MEDS ORDERED: Levothyroxine TAB* 75 MCG TAB PO SCH (06:00)
[2017-06-30 08:34] LABS: EGFR Non-African American 68.6 (>60)
[2017-06-30] MEDS ORDERED: BuPROPion XL* 150 MG TAB.XL PO SCH (09:00)
[2017-06-30] MEDS ORDERED: levETIRAcetam TAB* 500 MG PO SCH (09:00)
[2017-06-30] MEDS: Gabapentin CAP(*) 300 MG PO SCH ×2 (09:07→14:10)
[2017-06-30] MEDS: Buprenorphine/Naloxone 8-2 MG SL TAB* 1 TAB SL SCH (09:08)
[2017-06-30 11:38] VITALS: BP 99/51
--- NOTE | 2017-06-30 11:43 | EEG ---
ROUTINE ELECTROENCEPHALOGRAPHY: DATE OF STUDY: 06/29/2017- ROOM #[id number] DATE OF DICTATION: 06/29/17 8541 TIME: The recording of the study was from 15:59-16:25. ORDERING PROVIDER: Dr. Messi Gallagher. CLINICAL PROBLEM: This is a 37-year-old female with history of seizures, who had a breakthrough seizure today. The patient is still drowsy and is having trouble with memory. This EEG was requested to evaluate for epileptiform abnormalities. MEDICATIONS: She is on: 1. Suboxone. 2. Bupropion. 3. Gabapentin. 4. Levetiracetam. 5. Topiramate. 6. Levothyroxine. 7. Lorazepam. CLINICAL STATE: Sleep state. REPORT: This recording was obtained in sleep state. The background consisted of mixed frequency slowing in the delta and theta range with areas of retained organization and clearly-defined anterior and posterior voltage. There was no waking background. Anteriorly, there was expected pattern of lower voltage, irregular, mixed faster frequencies. Attenuation of the occipital rhythm was seen during the transition from drowsiness to sleep state. The sleep background was disorganized with persistent theta frequency, irregular high- amplitude delta frequency mostly in the left and central regions bilaterally and brief runs of sleep spindles and vertex waves. These sleep transients showed some appropriate morphology and are bilaterally synchronous and symmetric. Hyperventilation and photic stimulation were not performed. Throughout the recording, there were no clear electrographic seizures or epileptiform discharges. CLINICAL IMPRESSION: This is an abnormal sleep EEG due to disorganization of the sleep background and mostly obtained in sleep state. These findings are suggestive of a mild, nonspecific encephalopathy, which can be seen in a postictal state. There were no electrographic seizures. [id number]/[facility] #: [id number] [facility]
[2017-06-30] MEDS ORDERED: Topiramate TAB(*) 25 MG PO SCH ×2 (21:00)
--- NOTE | 2017-07-01 12:59 | DS ---
DISCHARGE SUMMARY: DATE OF ADMISSION: 06/29/17 DATE OF DISCHARGE: 06/30/17 ADMITTING PROVIDER: Messi Gallagher MD. PRIMARY CARE PHYSICIAN: Dr. Rito Rodriguez. OUTPATIENT NEUROLOGIST: Dr. John. CONSULTING NEUROLOGIST: Dr. Madison CHIEF COMPLAINT: Altered mental status, observed seizures. PRINCIPAL DIAGNOSIS: Breakthrough seizures. HISTORY OF PRESENT ILLNESS AND HOSPITAL COURSE: Gerardo Celaya is a 37-year- old female with past medical history of epilepsy former IV drug use, currently on Suboxone, depression, hypothyroidism who was observed on the morning of admission that she was having a suspected seizure. EMS arrived. She had postictal confusion and then had another 30-second episode of twitching. On arrival to the emergency room Dr. Smyth gave 2 mg of Ativan, given myoclonic twitching, which resolved. Dr. Madison, Neurology, was consulted who recommended loading with 1 g of IV Keppra, getting a CT head, which showed no acute intracranial abnormality. EEG was ordered, which was consistent with mild nonspecific encephalopathy as could be seen in postictal state, no clear electrographic seizures. The patient previously had been on Topamax 15 mg b.i.d. this was recommended to be changed to 25 mg at night with eventual cessation. Her Wellbutrin was also decreased to 100 mg a day instead of 300 mg a day, given its potential to lower seizure threshold. The patient was stable throughout the rest of the hospitalization. A urine drug screen was negative. She is being discharged with already scheduled followup with Dr. John. DISCHARGE MEDICATIONS: Include: 1. Wellbutrin 150 mg p.o. daily. 2. Suboxone 8/2 mg 1 tablet in the a.m. and half tab sublingually in the p.m. 3. Albuterol 2 puffs inhaled q.4 hours p.r.n. 4. Gabapentin 600 mg p.o. q.i.d. 5. Keppra 500 mg p.o. b.i.d. 6. Levothyroxine 75 mcg p.o. daily. 7. Topamax 25 mg p.o. bedtime. DISCHARGE DIET: Unrestricted. ACTIVITY LEVEL: The patient should not drive, operate heavy machinery, or climb to great heights, as a fall could be deadly given her history of epilepsy. FOLLOWUP: The patient should follow up with primary care provider within 2 to 5 days. She already has scheduled followup with Dr. John, 07/05/17 at 9:30 a.m. TIME SPENT: Time spent on discharge 35 minutes. [id number]/[facility] #: [id number] MTDLeela
== END 2017-06-30 14:39 | disposition home or self-care (01) ==
LOC: ED 10:40 → MEDTELE 12:21
PROVIDERS: ADMIT Internal Medicine; ATTEND Internal Medicine
DX: G40.909 Epilepsy, unspecified, not intractable, without status epilepticus (principal); R41.82 Altered mental status, unspecified; E03.9 Hypothyroidism, unspecified; F41.9 Anxiety disorder, unspecified; F32.9 Major depressive disorder, single episode, unspecified; F17.210 Nicotine dependence, cigarettes, uncomplicated; Z79.899 Other long term (current) drug therapy
CPT/HCPCS: 36415; 70450; 80048; 80307; 81003; 82330; 82550; 83735; 84100; 84439; 84443; 84479; 85025; 95819; 96365; 96375; 99291; A9270-GY; G0378; J2060

== ENCOUNTER 2017-07-15 10:29 | Emergency (ER) | payer OTHER ==
[2017-07-15] MEDS ORDERED: NS 0.9% 1000 ML* 1,000 ML IV ONE (10:54)
[2017-07-15] MEDS ORDERED: levETIRAcetam IV* 1,000 MG in NS 0.9% 100 ML* 100 ML IVPB ONE (10:54)
[2017-07-15] MEDS ORDERED: LORazepam INJ* 2 MG/ML 1 ML VIAL ONE (10:57)
[2017-07-15] MEDS ORDERED: LORazepam INJ* 2 MG/ML 1 ML VIAL IM ONE (10:59)
[2017-07-15 13:13] LABS: ABS Basophils 0 10^3/ul (0-0.2); ABS Eosinophils 0 10^3/ul (0-0.6); ABS Lymphocytes 0.8 10^3/ul (1.0-4.8); ABS Monocytes 0.2 10^3/ul (0-0.8); ABS Neutrophils 6.4 10^3/ul (1.5-7.7); ABS Nucleated RBC 0 10^3/ul; Eosinophil % 0.1 % (0-6); Hematocrit 39 % (35-47); Hemoglobin 13.1 g/dl (12.0-16.0); Lymphocyte % 10.8 % (25-47); Mean Corpuscular HGB Conc 34 g/dl (31-36); Mean Corpuscular Hemoglobin 33 pg (27-31); Mean Corpuscular Volume 98 fL (80-97); Mean Platelet Volume 7.2 um3 (7.4-10.4); Nucleated Red Blood Cells % 0; Platelet Count 177 10^3/ul (150-450); Red Blood Count 3.97 10^6/ul (4.0-5.4); Red Cell Distribution Width 13 % (10.5-15); White Blood Count 7.4 10^3/ul (3.5-10.8)
[2017-07-15 13:23] LABS: INR 0.96 (0.77-1.02)
[2017-07-15 13:30] LABS: EGFR Non-African American 66.1 (>60)
--- NOTE | 2017-07-15 13:53 | RAD ---
HISTORY: Seizure, weakness, confusion COMPARISONS: June 29, 2017 TECHNIQUE: Multiple contiguous axial CT scans were obtained of the head without intravenous contrast. FINDINGS: HEMORRHAGE/INFARCT: There is no hemorrhage or acute infarct. MASSES/SHIFT: There is no mass or shift. EXTRA-AXIAL SPACES: There are no extra-axial fluid collections. SULCI AND VENTRICLES: The sulci and ventricles are normal in size and position for the patient's stated age. CEREBRUM: There are no focal parenchymal abnormalities. BRAINSTEM: There are no focal parenchymal abnormalities. CEREBELLUM: There are no focal parenchymal abnormalities. VESSELS: The vessels are grossly normal. PARANASAL SINUSES: The paranasal sinuses are clear. ORBITS: The orbits are unremarkable. BONES AND SOFT TISSUE: No bone or soft tissue abnormalities are noted. OTHER: None IMPRESSION: NO ACUTE INTRACRANIAL PATHOLOGY.
[2017-07-15] MEDS ORDERED: lamoTRIgine TAB(*) 25 MG PO ONE ×2 (15:49→16:21)
[2017-07-15 16:19] LABS: Urine Appearance Clear; Urine Blood Negative (Negative); Urine Color Yellow; Urine Ketones Trace (Negative); Urine Protein 1+(30 mg/dL) (Negative); Urine Specific Gravity 1.024 (1.010-1.030); Urine Urobilinogen Negative (Negative)
[2017-07-15] MEDS ORDERED: LORazepam TAB(*) 1 MG PO ONE (17:35)
[2017-07-15 18:24] VITALS: BP 104/60
--- NOTE | 2017-07-16 18:59 | ED ---
Raquel Aguirre Gabriel scribed for Tiago Jansen MD on 07/15/17 at 1057 . Neurological HPI - HPI Summary HPI Summary: This patient is a 37 year old F BIBA to [facility] because she is having a seizure. She has a gaze deviation to left, tonic clonic seizure. Pt was responding to nurse but was confused. Hx seizures and is one medication. She is bleeding from her mouth due to biting her tongue. LEVEL 5 CAVEAT: Exam limited due to the patients state - History of Current Complaint Chief Complaint: EDSeizure Stated Complaint: SEIZURES Time Seen by Provider: 07/15/17 10:40 Hx Obtained From: EMS, Medical Records Hx Last Menstrual Period: IUD Onset/Duration: Sudden Onset Timing: Sudden Onset Onset Severity: Moderate Current Severity: Moderate Seizure Severity: Moderate Neurological Deficit Location: Generalized Pain Intensity: 0 - Additional Pertinent History Primary Care Physician: [id number] - Allergy/Home Medications Allergies/Adverse Reactions: Allergies Allergy/AdvReac Type Severity Reaction Status Date / Time No Known Allergies Allergy Verified 07/15/17 10:36 PMH/Surg Hx/FS Hx/Imm Hx Endocrine/Hematology History: Reports: Hx Thyroid Disease - HYPOTHYROID Denies: Hx Diabetes Cardiovascular History: Denies: Hx Hypertension, Hx Pacemaker/ICD Respiratory History: Denies: Hx Asthma, Hx Chronic Obstructive Pulmonary Disease (COPD) GI History: Denies: Hx Ulcer History: Reports: Other Problems/Disorders - Cervical Ca Denies: Hx Renal Disease Sensory History: Denies: Hx Contacts or Glasses, Hx Hearing Aid Opthamlomology History: Denies: Hx Contacts or Glasses Neurological History: 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 Psychiatric History: Reports: Hx Depression Denies: Hx Panic Disorder - Cancer History Cancer Type, Location and Year: Cervical cancer 2009 - Surgical History Surgery Procedure, Year, and Place: Cervical Cancer 2009 Infectious Disease History: No Infectious Disease History: Reports: Hx Hepatitis - Hepatitis C Denies: Hx Clostridium Difficile, Hx Human Immunodeficiency Virus (HIV), Hx of Known/Suspected MRSA, Hx Shingles, Hx Tuberculosis, Hx Known/Suspected VRE, Hx Known/Suspected VRSA, History Other Infectious Disease, Traveled Outside the [place] in Last 30 Days - Family History Known Family History: Positive: Cardiac Disease, Diabetes Negative: Hypertension - Social History Alcohol Use: None Substance Use Type: Reports: None Substance Use Comment - Amount & Last Used: denies Hx Tobacco Use: Yes Smoking Status (MU): Current Every Day Smoker Type: Cigarettes Amount Used/How Often: 1 ppd Length of Time of Smoking/Using Tobacco: 5 years Review of Systems - ROS Summary Review of Systems Summary: LEVEL 5 CAVEAT: Exam limited due to the patients state Skin: Other - She is bleeding from her mouth due to biting her tongue. Neurological: Other - seizure All Other Systems Reviewed And Are Negative: No Physical Exam - Summary Physical Exam Summary: Constitutional: Well-developed, Well-nourished, posticital state, she is not responding to painful stimuli, she is tolerating her secretions well Skin: Warm, Dry HENT: Normocephalic; Atraumatic Eyes: Conjunctiva normal Neck: Musculoskeletal ROM normal neck. (-) JVD, (-) Stridor, (-) Tracheal deviation Cardio: Rhythm regular, rate normal, Heart sounds normal; Intact distal pulses; The pedal pulses are 2+ and symmetric. Radial pulses are 2+ and symmetric. (-) Murmur Pulmonary/Chest wall: Effort normal. (-) Respiratory distress, (-) Wheezes, (-) Rales Abd: Soft, (-) Distension, (-) Guarding, (-) Rebound Musculoskeletal: (-) Edema Lymph: (-) Cervical adenopathy Neuro: Alert, LEVEL 5 CAVEAT: Exam limited due to the patients state Triage Information Reviewed: Yes Vital Signs On Initial Exam: Initial Vitals Pulse Resp BP Pulse Ox 73 12 94/51 95 07/15/17 09:36 07/15/17 09:36 07/15/17 09:36 07/15/17 09:36 Vital Signs Reviewed: Yes Completion Of Physical Exam Limited Due To: Level 5 Diagnostics - Vital Signs Vital Signs Temp Pulse Resp BP Pulse Ox 07/15/17 10:36 98.4 F 71 6 94/51 95 07/15/17 10:35 72 97 07/15/17 09:36 73 12 94/51 95 - Laboratory Lab Results: Lab Results 07/15/17 07/15/17 07/15/17 Range/Units 10:54 12:59 12:59 WBC 7.4 (3.5-10.8) 10^3/ul RBC 3.97 L (4.0-5.4) 10^6/ul Hgb 13.1 (12.0-16.0) g/dl Hct 39 (35-47) % MCV 98 H (80-97) fL MCH 33 H (27-31) pg MCHC 34 (31-36) g/dl RDW 13 (10.5-15) % Plt Count 177 (150-450) 10^3/ul MPV 7.2 L (7.4-10.4) um3 Neut % (Auto) 86.4 H (38-83) % Lymph % (Auto) 10.8 L (25-47) % Izard % (Auto) 2.5 (0-7) % Eos % (Auto) 0.1 (0-6) % Baso % (Auto) 0.2 (0-2) % Absolute Neuts (auto) 6.4 (1.5-7.7) 10^3/ul Absolute Lymphs (auto) 0.8 L (1.0-4.8) 10^3/ul Absolute Monos (auto) 0.2 (0-0.8) 10^3/ul Absolute Eos (auto) 0 (0-0.6) 10^3/ul Absolute Basos (auto) 0 (0-0.2) 10^3/ul Absolute Nucleated RBC 0 10^3/ul Nucleated RBC % 0 INR (Anticoag Therapy) 0.96 (0.77-1.02) Sodium (139-145) mmol/L Potassium (3.5-5.0) mmol/L Chloride (101-111) mmol/L Carbon Dioxide (22-32) mmol/L Anion Gap (2-11) mmol/L BUN (6-24) mg/dL Creatinine (0.51-0.95) mg/dL Est GFR ( Amer) (>60) Est GFR (Non-Af Amer) (>60) BUN/Creatinine Ratio (8-20) Glucose (70-100) mg/dL POC Glucose (mg/dL) 145 H (70-100) mg/dL Lactic Acid (0.5-2.0) mmol/L Calcium (8.6-10.3) mg/dL Magnesium (1.9-2.7) mg/dL Total Bilirubin (0.2-1.0) mg/dL AST (13-39) U/L ALT (7-52) U/L Alkaline Phosphatase (34-104) U/L Total Protein (6.4-8.9) g/dL Albumin (3.2-5.2) g/dL Globulin (2-4) g/dL Albumin/Globulin Ratio (1-3) Urine Color Urine Appearance Urine pH (5-9) Ur Specific [place] (1.010-1.030) Urine Protein (Negative) Urine Ketones (Negative) Urine Blood (Negative) Urine Nitrate (Negative) Urine Bilirubin (Negative) Urine Urobilinogen (Negative) Ur Leukocyte Esterase (Negative) Urine WBC (Auto) (Absent) Urine RBC (Auto) (Absent) Ur Squamous Epith Cells (Absent) Urine Bacteria (Absent) Urine Glucose (Negative) Serum Alcohol (<10) mg/dL 07/15/17 07/15/17 07/15/17 Range/Units 12:59 12:59 15:50 WBC (3.5-10.8) 10^3/ul RBC (4.0-5.4) 10^6/ul Hgb (12.0-16.0) g/dl Hct (35-47) % MCV (80-97) fL MCH (27-31) pg MCHC (31-36) g/dl RDW (10.5-15) % Plt Count (150-450) 10^3/ul MPV (7.4-10.4) um3 Neut % (Auto) (38-83) % Lymph % (Auto) (25-47) % Izard % (Auto) (0-7) % Eos % (Auto) (0-6) % Baso % (Auto) (0-2) % Absolute Neuts (auto) (1.5-7.7) 10^3/ul Absolute Lymphs (auto) (1.0-4.8) 10^3/ul Absolute Monos (auto) (0-0.8) 10^3/ul Absolute Eos (auto) (0-0.6) 10^3/ul Absolute Basos (auto) (0-0.2) 10^3/ul Absolute Nucleated RBC 10^3/ul Nucleated RBC % INR (Anticoag Therapy) (0.77-1.02) Sodium 139 (139-145) mmol/L Potassium 4.2 (3.5-5.0) mmol/L Chloride 111 (101-111) mmol/L Carbon Dioxide 22 (22-32) mmol/L Anion Gap 6 (2-11) mmol/L BUN 11 (6-24) mg/dL Creatinine 0.96 H (0.51-0.95) mg/dL Est GFR ( Amer) 85.1 (>60) Est GFR (Non-Af Amer) 66.1 (>60) BUN/Creatinine Ratio 11.5 (8-20) Glucose 100 (70-100) mg/dL POC Glucose (mg/dL) (70-100) mg/dL Lactic Acid 1.4 (0.5-2.0) mmol/L Calcium 9.2 (8.6-10.3) mg/dL Magnesium 2.2 (1.9-2.7) mg/dL Total Bilirubin 0.40 (0.2-1.0) mg/dL AST 19 (13-39) U/L ALT 12 (7-52) U/L Alkaline Phosphatase 46 (34-104) U/L Total Protein 6.7 (6.4-8.9) g/dL Albumin 3.9 (3.2-5.2) g/dL Globulin 2.8 (2-4) g/dL Albumin/Globulin Ratio 1.4 (1-3) Urine Color Yellow Urine Appearance Clear Urine pH 5.0 (5-9) Ur Specific [place] 1.024 (1.010-1.030) Urine Protein 1+(30 mg/dl) A (Negative) Urine Ketones Trace A (Negative) Urine Blood Negative (Negative) Urine Nitrate Negative (Negative) Urine Bilirubin Negative (Negative) Urine Urobilinogen Negative (Negative) Ur Leukocyte Esterase Negative (Negative) Urine WBC (Auto) Trace(0-5/hpf) (Absent) Urine RBC (Auto) Trace(0-2/hpf) (Absent) Ur Squamous Epith Cells Present A (Absent) Urine Bacteria Absent (Absent) Urine Glucose Negative (Negative) Serum Alcohol < 10 (<10) mg/dL Result Diagrams: 07/15/17 12:59 07/15/17 12:59 Lab Statement: Any lab studies that have been ordered have been reviewed, and results considered in the medical decision making process. - CT CT Brain CT Interpretation Completed By: Radiologist - NO ACUTE INTRACRANIAL PATHOLOGY. ED physician has reviewed this radiology report. - EKG 15:41 Cardiac Rate: NL EKG Rhythm: Sinus Rhythm - at 69 BPM EKG Interpretation: no STEMI Re-Evaluation - Re-Evaluation First Eval Re-Evaluation Time: 11:26 Change: Improved Comment: The pt is waking up. Second Eval Re-Evaluation Time: 15:48 Change: Unchanged Comment: The patient states she does not take her Keppra because it makes her feel crazy. She does state she takes her Lamictal three times a day, although her script is for once a day. Third Eval Re-Evaluation Time: 16:23 Change: Unchanged Comment: As I discussed discharge with the patient she informed me she took 3 pills of her medication last night and that is the first time she has done that. I will wait to discharge her and contact her PCP again. Course/Dx - Course Assessment/Plan: This patient is a 37 year old F BIBA to [facility] because she is having a seizure. She has a gaze deviation to left, tonic clonic seizure. Pt was responding to nurse but was confused. Hx seizures and is one medication. She is bleeding from her mouth due to biting her tongue. LEVEL 5 CAVEAT: Exam limited due to the patients state. . An EKG reveals NSR. CT Brain reveals, per radiologist, NO ACUTE INTRACRANIAL PATHOLOGY. Test results with no significant abnormalities. UA was negative for UTI. In the ED course the patient was given lamictal, ativan, and IV fluids. 1431 We discussed patient care with Dr. Arnold and they recommended contacting Dr. John to discuss the patients medication. 1545 We discussed patient care with Dr. John and he states he never prescribed her keppra and that he prescribed her lamictal. He would like to continue her current medication. 1730 Dr. John suggests continuing the 75mg of lamictal he will not increased dose at this time. He does recommended giving the patient oral Ativan to use at home after she has a seizure. Patient will be discharged with prescription for lamictal and follow up from Dr. John. The patient is agreeable with this plan. - Diagnoses Provider Diagnoses: Breakthrough seizure, Nonadherence to medication Discharge - Sign-Out/Discharge Documenting (check all that apply): Discharge/Admit/Transfer - Discharge Plan Condition: Stable Disposition: HOME Prescriptions: lamoTRIgine TAB(*) [Lamictal TAB(*)] 50 mg PO BEDTIME #28 tab Patient Education Materials: Epilepsy (ED) Referrals: Gato John MD [Medical Doctor] - 3 Days Additional Instructions: RETURN TO THE EMERGENCY DEPARTMENT FOR CHANGING OR WORSENING SYMPTOMS The documentation as recorded by the Raquel harden Gabriel accurately reflects the service I personally performed and the decisions made by , Tiago Jansen MD.
== END 2017-07-15 18:24 | disposition home or self-care (01) ==
LOC: ED 10:29
DX: G40.409 Other generalized epilepsy and epileptic syndromes, not intractable, without status epilepticus (principal); F17.210 Nicotine dependence, cigarettes, uncomplicated; Z91.14 Patient's other noncompliance with medication regimen
CPT/HCPCS: 36415; 70450; 80053; 80175; 80177; 80320; 81003; 81015; 83605; 83735; 85025; 85610; 87086; 93005; 96372; 99283; A9270-GY; G0480; J2060

== ENCOUNTER 2017-07-22 09:54 | Observation (INO) | payer OTHER ==
[2017-07-22] MEDS ORDERED: NS 0.9% 1000 ML* 1,000 ML IV ONE ×2 (10:15→10:16)
[2017-07-22 10:55] LABS: ABS Basophils 0 10^3/ul (0-0.2); ABS Eosinophils 0 10^3/ul (0-0.6); ABS Lymphocytes 0.7 10^3/ul (1.0-4.8); ABS Monocytes 0.2 10^3/ul (0-0.8); ABS Neutrophils 5.7 10^3/ul (1.5-7.7); ABS Nucleated RBC 0 10^3/ul; Eosinophil % 0.2 % (0-6); Hematocrit 40 % (35-47); Hemoglobin 13.4 g/dl (12.0-16.0); Lymphocyte % 10.5 % (25-47); Mean Corpuscular HGB Conc 34 g/dl (31-36); Mean Corpuscular Hemoglobin 33 pg (27-31); Mean Corpuscular Volume 98 fL (80-97); Mean Platelet Volume 7.2 um3 (7.4-10.4); Nucleated Red Blood Cells % 0; Platelet Count 194 10^3/ul (150-450); Red Blood Count 4.02 10^6/ul (4.0-5.4); Red Cell Distribution Width 13 % (10.5-15); White Blood Count 6.6 10^3/ul (3.5-10.8)
[2017-07-22 11:28] LABS: EGFR Non-African American 58.4 (>60)
[2017-07-22] MEDS ORDERED: LORazepam INJ* 2 MG/ML 1 ML VIAL IV PUSH ONE (12:19)
[2017-07-22] MEDS ORDERED: LORazepam INJ* 2 MG/ML 1 ML VIAL ONE (12:20)
[2017-07-22] MEDS ORDERED: levETIRAcetam IV* 1,500 MG in NS 0.9% 100 ML* 100 ML IVPB ONE (13:15)
--- NOTE | 2017-07-22 15:30 | ED ---
Raquel Aguirre Gabriel, scribed for Jeana Licona MD on 07/22/17 at 1020 . Neurological HPI - HPI Summary HPI Summary: This patient is a 37 year old F BIBA to [facility] s/p seizure that occurred this morning. EMS reports that the patient was having focal seizures at home this morning witness by the family and during transit she experienced a total clonic one. When they arrived she was in her bed and was incontinent, her EKG by EMS was NSR, and her blood glucose was within normal limits. She did also bite her tongue. During the seizure in the ambulance the patient was given 5mg of versed. She had a recent medication change due to adverse effects to the Keppra and no one is aware of the new medication. She arouses to voice and is aware that she is in the hospital but is unaware of the new medication, but she does report taking it as directed. She denies drug use but does take suboxone. EMS states family denies head trauma, fever, and recent illness. - History of Current Complaint Chief Complaint: EDSeizure Stated Complaint: SEIZURE Time Seen by Provider: 07/22/17 10:08 Hx Obtained From: Patient, EMS Hx Last Menstrual Period: IUD Onset/Duration: Resolved Timing: Intermittent Episodes Lasting: Onset Severity: Severe Current Severity: None Seizure Severity: Moderate Number of Seizures: 2 Pain Intensity: 0 Pain Scale Used: 0-10 Numeric Syncope Context: Witnessed Seizure Character: Total-Clonic Associated Signs and Symptoms: Positive: Negative - fever and head injury, Incontinent Bladder/Bowel - Additional Pertinent History Primary Care Physician: [id number] - Allergy/Home Medications Allergies/Adverse Reactions: Allergies Allergy/AdvReac Type Severity Reaction Status Date / Time No Known Allergies Allergy Verified 07/15/17 10:36 Home Medications: Home Medications Bupropion XL* [Wellbutrin XL *] 150 mg PO BID 07/22/17 [History Confirmed ] Topiramate TAB(*) [Topamax 25 MG tab] 25 mg PO DAILY 07/22/17 [History Confirmed 07/22/17] PMH/Surg Hx/FS Hx/Imm Hx Endocrine/Hematology History: Reports: Hx Thyroid Disease - HYPOTHYROID Denies: Hx Diabetes Cardiovascular History: Denies: Hx Hypertension, Hx Pacemaker/ICD Respiratory History: Denies: Hx Asthma, Hx Chronic Obstructive Pulmonary Disease (COPD) GI History: Denies: Hx Ulcer History: Reports: Other Problems/Disorders - Cervical Ca Denies: Hx Renal Disease Sensory History: Denies: Hx Contacts or Glasses, Hx Hearing Aid Opthamlomology History: Denies: Hx Contacts or Glasses Neurological History: 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 Psychiatric History: Reports: Hx Depression Denies: Hx Panic Disorder - Cancer History Cancer Type, Location and Year: Cervical cancer 2009 - Surgical History Surgery Procedure, Year, and Place: Cervical Cancer 2009 Infectious Disease History: No Infectious Disease History: Reports: Hx Hepatitis - Hepatitis C Denies: Hx Clostridium Difficile, Hx Human Immunodeficiency Virus (HIV), Hx of Known/Suspected MRSA, Hx Shingles, Hx Tuberculosis, Hx Known/Suspected VRE, Hx Known/Suspected VRSA, History Other Infectious Disease, Traveled Outside the [place] in Last 30 Days - Family History Known Family History: Positive: Cardiac Disease, Diabetes Negative: Hypertension - Social History Lives: With Family Alcohol Use: None Substance Use Type: Reports: None Substance Use Comment - Amount & Last Used: denies Hx Tobacco Use: Yes Smoking Status (MU): Current Every Day Smoker Type: Cigarettes Amount Used/How Often: 1 ppd Length of Time of Smoking/Using Tobacco: 5 years Review of Systems Negative: Fever Genitourinary: Other - incontinent Musculoskeletal: Negative - head trauma Psychological: Other - seizure All Other Systems Reviewed And Are Negative: Yes Physical Exam - Summary Physical Exam Summary: GENERAL: Patient is a well developed and nourished F who is lying comfortable in the stretcher. Patient is not in any acute respiratory distress. HEAD AND FACE: Normocephalic EYES: PERRLA, EOMI x 2. EARS: Hearing grossly intact. MOUTH: Oropharynx within normal limits. NECK: Supple, trachea is midline, no adenopathy, no JVD, no carotid bruit. CHEST: Symmetric, no tenderness at palpation LUNGS: Clear to auscultation bilaterally. No wheezing or crackles. CVS: Regular rate and rhythm, S1 and S2 present, no murmurs or gallops appreciated. ABDOMEN: Soft, non-tender. Bowel sounds are normal. No abdominal abnormal pulsations. EXTREMITIES: Full ROM in all major joints, no edema, no cyanosis or clubbing. NEURO: postictal, arouses to voice, and oriented x 3. No acute neurological deficits. Speech is slow and follows commands. Triage Information Reviewed: Yes Vital Signs On Initial Exam: Initial Vitals Temp Pulse Resp BP Pulse Ox 98.9 F 85 16 91/47 94 07/22/17 10:00 07/22/17 10:00 07/22/17 10:00 07/22/17 10:00 07/22/17 10:00 Vital Signs Reviewed: Yes Diagnostics - Vital Signs Vital Signs Temp Pulse Resp BP Pulse Ox 07/22/17 10:00 98.9 F 85 16 91/47 94 - Laboratory Lab Results: Lab Results 07/22/17 07/22/17 Range/Units 10:39 10:39 WBC 6.6 (3.5-10.8) 10^3/ul RBC 4.02 (4.0-5.4) 10^6/ul Hgb 13.4 (12.0-16.0) g/dl Hct 40 (35-47) % MCV 98 H (80-97) fL MCH 33 H (27-31) pg MCHC 34 (31-36) g/dl RDW 13 (10.5-15) % Plt Count 194 (150-450) 10^3/ul MPV 7.2 L (7.4-10.4) um3 Neut % (Auto) 86.2 H (38-83) % Lymph % (Auto) 10.5 L (25-47) % [place] % (Auto) 2.9 (0-7) % Eos % (Auto) 0.2 (0-6) % Baso % (Auto) 0.2 (0-2) % Absolute Neuts (auto) 5.7 (1.5-7.7) 10^3/ul Absolute Lymphs (auto) 0.7 L (1.0-4.8) 10^3/ul Absolute Monos (auto) 0.2 (0-0.8) 10^3/ul Absolute Eos (auto) 0 (0-0.6) 10^3/ul Absolute Basos (auto) 0 (0-0.2) 10^3/ul Absolute Nucleated RBC 0 10^3/ul Nucleated RBC % 0 Sodium 138 L (139-145) mmol/L Potassium 4.0 (3.5-5.0) mmol/L Chloride 106 (101-111) mmol/L Carbon Dioxide 23 (22-32) mmol/L Anion Gap 9 (2-11) mmol/L BUN 11 (6-24) mg/dL Creatinine 1.07 H (0.51-0.95) mg/dL Est GFR ( Amer) 75.0 (>60) Est GFR (Non-Af Amer) 58.4 (>60) BUN/Creatinine Ratio 10.3 (8-20) Glucose 111 H (70-100) mg/dL Calcium 9.1 (8.6-10.3) mg/dL Total Bilirubin 0.20 (0.2-1.0) mg/dL AST 17 (13-39) U/L ALT 12 (7-52) U/L Alkaline Phosphatase 42 (34-104) U/L Total Protein 6.9 (6.4-8.9) g/dL Albumin 4.0 (3.2-5.2) g/dL Globulin 2.9 (2-4) g/dL Albumin/Globulin Ratio 1.4 (1-3) Beta HCG, Quant < 0.60 mIU/mL Result Diagrams: 07/22/17 10:39 07/22/17 10:39 Lab Statement: Any lab studies that have been ordered have been reviewed, and results considered in the medical decision making process. Re-Evaluation - Re-Evaluation First Eval Re-Evaluation Time: 12:15 Change: Worse Comment: Pt exhibits seizure activity in the ED, tonic clonic, given ativan 2 mg IV, did bite her tongue. Course/Dx - Course Assessment/Plan: This patient is a 37 year old F BIBA to [facility] s/p seizure that occurred this morning. EMS reports that the patient was having focal seizures at home this morning witness by the family and during transit she experienced a total clonic one. When they arrived she was in her bed and was incontinent, her EKG by EMS was NSR, and her blood glucose was within normal limits. She did also bite her tongue. During the seizure in the ambulance the patient was given 5mg of versed. She had a recent medication change due to adverse effects to the Keppra and no one is aware of the new medication. She arouses to voice and is aware that she is in the hospital but is unaware of the new medication, but she does report taking it as directed. She denies drug use but does take suboxone. EMS states family denies head trauma, fever, and recent illness. Patient had another episode of seizure here in the emergency room and was given 2 mg of Ativan IV. Patient did bite her tongue during seizure. I Consulted who came and saw patient at bedside and recommended loading with Keppra as well as an EEG and admission hospitalist team. Discussed with Dr. Gallagher. Test results with no significant abnormalities. In the ED course the patient was given ativan and IVfluids. 1230 We discussed patient care with Dr. Goode and they have agreed to come and see the pt. After she saw the patient she believes the patient should be admitted to the hospital for observation. At this time I discussed the case with Dr. Gallagher who accepts the patient for admission. Patient will be admitted for seizure observation. The patient is agreeable with this plan. - Diagnoses Provider Diagnoses: Seizures Discharge - Sign-Out/Discharge Documenting (check all that apply): Discharge/Admit/Transfer - admitted to Dr. Gallagher - Discharge Plan Condition: Fair Disposition: ADMITTED TO [facility] Referrals: Jerel Raymond MD [Primary Care Provider] - - Billing Disposition and Condition Condition: FAIR [place] [place] The documentation as recorded by the Raquel harden Gabriel accurately reflects the service I personally performed and the decisions made by , Jeana Licona MD.
[2017-07-22] MEDS: Gabapentin CAP(*) 300 MG PO SCH ×2 (18:43→21:44)
[2017-07-22] MEDS ORDERED: Buprenorphine/Naloxone 8-2 MG SL TAB* 1 TAB PO SCH (20:00)
[2017-07-22] MEDS: lamoTRIgine TAB(*) 25 MG PO SCH (21:44)
[2017-07-22] MEDS: levETIRAcetam TAB* 500 MG PO SCH (21:51)
[2017-07-22] MEDS ORDERED: Ibuprofen TAB* 800 MG PO PRN (22:14)
[2017-07-22] MEDS ORDERED: Acetaminophen TAB* 325 MG PO PRN (22:14)
[2017-07-22] MEDS ORDERED: Buprenorphine/Naloxone 8-2 MG SL TAB* 1 TAB PO ONE (22:15)
--- NOTE | 2017-07-22 23:57 | CONS ---
CC: Dr. John * NEUROLOGY CONSULTATION: DATE OF CONSULT: 07/22/17 REASON FOR CONSULT: Multiple breakthrough seizures. HISTORY OF PRESENT ILLNESS: Gerardo Celaya is a 37-year-old woman with a reported history of former narcotic dependency, on Suboxone, and a history of seizures since approximately January of 2016, who presents with at least 3 seizures today. The history is taken primarily from review of the outpatient record as well as available inpatient records and discussion with the emergency room personnel, as Ms. Celaya is not able to contribute to the history given her postictal state currently. She sees Dr. John for her seizures and saw him yesterday, at which time, he increased her lamotrigine to 100 mg at night. She has been in the hospital or emergency room 2 other times this month with break-through seizures and was admitted on 06/29/17 and discharged on 06/30/17, then had an ER visit on 07/15/17 and now today. On 06/30/17, she was seen by Dr. Madison and his consultation indicates that she was on a low dose of topiramate when she came in with a breakthrough seizure. During that admission , he recommended that she be given Keppra 1000 mg x1 and then continue 500 mg twice daily. The discharge summary indicates she was instructed to go home on this medication and Wellbutrin dose was decreased from 300 mg daily to 150 mg daily. According to information obtained from the emergency room via a friend of Ms. Celaya, she has had irritability and moodiness as well as some anger issues on levetiracetam. This person indicates that she is now on lamotrigine alone. On my evaluation of Ms. Celaya, she is not able to say if she has any warning prior to her seizures occurring. She states that she currently feels like "crap." Other responses are not intelligible because her speech is occasionally garbled as she repeatedly falls asleep. The record indicates that she had a son, who due to seizures at the age of 5 or 6. It seems though that she herself did not start experiencing seizures until January of 2016. She saw Dr. John for the first time around then and then did not follow up again until this month. Today, she reportedly had a seizure at home and experienced another seizure on the way here in the ambulance. According to Dr. Licona and the nurse at her bedside, she was doing better and then the nurse noticed that she became more confused over a period of 10 or 15 minutes or so and was not really responding normal verbally. She then experienced a secondarily generalized seizure where she had head turning to the right and oral trauma. PAST MEDICAL HISTORY: Anxiety, thyroid disease, seizure disorder. PAST SURGICAL HISTORY: Surgery for cervical cancer in 2009. MEDICATIONS: Uncertain, but as best we can tell include: 1. Lamotrigine 25 mg tablets between 50 and 100 mg at bedtime (pt supposed to be taking 100mg, but not clear at this time). 2. Levothyroxine 75 mcg daily. 3. Gabapentin 600 mg four times daily. 4. Bupropion 150 mg b.i.d. 5. Suboxone 8-2 mg 1-1/2 tablets q.a.m. I also note that topiramate is still on her list at 25 mg daily, but I am uncertain whether she is taking this medication. ALLERGIES: No known drug allergies. FAMILY HISTORY: Notable for seizures in her son as mentioned, otherwise not obtainable from the patient currently. SOCIAL HISTORY: The chart indicates that she lives with her 3 children and is unemployed. She is a smoker and she denied any alcohol use to Dr. Madison previously. REVIEW OF SYSTEMS: Cannot be obtained secondary to the patient's postictal state. PHYSICAL EXAM: Vital Signs: Temperature 98.9, blood pressure 98/51, heart rate 74, oxygen saturation 97% on room air. On general examination, she is lying in bed asleep with her head resting on her right hand. She can be briefly aroused from sleep and sometimes can answer some questions and will follow some commands such as to raise her arms and legs , but quickly falls back to sleep if left unattended. Her heart is in a regular rate and rhythm with no obvious murmurs. Lungs were clear anteriorly to auscultation. She has blood on her hospital gown from biting her tongue. There is some bruising over her lower extremities anteriorly. On neurologic exam, she is somnolent. She states that she is in the hospital, but states the month is March and the year is 2017. Her pupils were equal, round, and reactive to light. She seems to have a right gaze preference and I cannot get her to cross midline even when I rouse her from sleep, but she is able to follow my finger to the right. Her be appear intact to threat. Her face appears symmetric. Hearing is intact to voice. On motor exam, she is able to lift both upper extremities antigravity, seems to have a little bit more difficulty raising the left leg off the bed, but the right leg she was able to raise without much difficulty. Sensation is intact to noxious stimulation in all 4 extremities. Her reflexes were 3+ in the left upper extremity, 2+ right upper extremity and right knee and left knee, 2+ at the right ankle, sustained clonus at the left ankle with downgoing toes bilaterally. DIAGNOSTIC STUDIES/LAB DATA: Her laboratory data is notable for a normal white count of 6.6, hematocrit 40, hemoglobin 13.4, elevated MCV of 98, MCH 33, platelet count of 194. There is a left shift of 86% neutrophils. Chemistry panel shows a sodium of 138, creatinine of 1.07 with a BUN of 11. Her creatinine on 06/30/17 was 0.93. Glucose is 111. Liver functions are normal. Her beta hCG is negative. A urinalysis has not been sent yet nor has a urine toxicology. She has had neuroimaging in the past with a brain CT on 05/15/17, which showed no acute intracranial abnormality. She also had brain MRI on 03/31/16, which demonstrated no etiology for her seizures. In particular, there were no focal parenchymal abnormalities and the mesial temporal lobes were symmetric. IMPRESSION AND PLAN: Gerardo Celaya is a 37-year-old woman with a history of epilepsy of unclear localization and type since January of 2016, who came in with at least 3 seizures today. On her examination today, she seems to have some right gaze preference as well as some clonus in the left ankle and given the report of right head turning with secondary generalization, I am going to obtain EEG stat in order to evaluate for the possible presence of nonconvulsive status epilepticus. I recognize that she has had adverse reaction to levetiracetam in the past, but I am going to load her with 1500 mg IV at this time as her lamotrigine has been relatively newly started this month and her level is likely not therapeutic even if she has been compliant. I considered valproic acid, but valproic acid increases the lamotrigine level and I did not want to put her at risk for a serious drug rash related to lamotrigine. If levetiracetam does not hold her, we could also consider fosphenytoin, but being on 2 sodium channel blockers could put her at risk for more side effects. She is going to be brought into the hospital for observation at this point to ensure her seizures have settled down. Thank you for this consultation. [id number]/[facility] #: [id number] JERICHO
[2017-07-23] MEDS ORDERED: NS 0.9% 1000 ML* 1,000 ML IV ONE (00:17)
--- NOTE | 2017-07-23 00:47 | HP ---
HISTORY AND PHYSICAL: DATE OF ADMISSION: 07/22/17. ADMITTING PROVIDER: Messi Gallagher MD. PRIMARY CARE PROVIDER: Rito Rodriguez MD. OUTPATIENT NEUROLOGIST: Dr. John. CHIEF COMPLAINT: Seizures. HISTORY OF PRESENT ILLNESS: Gerardo Celaya is a 37-year-old female with past medical history of epilepsy; former IV drug abuser, on Suboxone; depression; hypothyroidism, who was recently discharged on 06/30/17 with episode of seizures , at that time was discharged on Keppra, but had mood reaction (patient attested to nausea at this time) and patient followed with Dr. John 07/05. At that time, Lamictal was started with plan to titration upward. She was again seen on 07/15/17 in the emergency room with seizures. Dr. John was called at that time and patient sent home with order for Ativan as needed along with continued Lamictal. She was seen day prior to admission, 07/21/17, at that time her Topamax was stopped and she was increased to Lamictal 100 mg q.h.s. Of note, she had previously been titrated down off her Wellbutrin. Per the EMS documentation had another seizure day of admission, had Versed 5 mg IM with EMS, then had some twitching movements in the ED and got another 2 mg of Ativan around 1226. Bedside EEG was performed. She was Keppra loaded around [address] Talita Goode of Neurology evaluated the patient. She has recommended admission, Keppra load, and continuation of the Lamictal along with checking the Lamictal level. Patient is snoring upon entering the room, but easily arousable to loud voice. She does not recall the visit with Dr. John yesterday. She is oriented to year and month. Does not recall the name Lamictal or lamotrigine and cannot recall what medication she is taking for her seizures. She does state she took her Suboxone this morning. Denies any other complaints other than tiredness and some pain on the side of her head. PAST MEDICAL HISTORY: Epilepsy; IV drug use, on Suboxone; hypothyroidism; anxiety; depression; smoker. MEDICATIONS: Include: 1. Lamotrigine 100 mg q.h.s.. 2. Gabapentin 600 mg 4 times a day. 3. Suboxone 8/2 mg 1 in the morning and half tab in the evening. 4. Levothyroxine 75 mcg daily. ALLERGIES: No known drug allergies. States that KEPPRA causes nausea and report of mood disturbance with it as well per providers. FAMILY HISTORY: Both parents had depression. Her youngest son age 6 had seizures which were fatal. Three of her sons are in good health. SOCIAL HISTORY: One pack per day smoker. No significant alcohol abuse or drinking. History of IV heroin abuse. Lives with her 3 children. Homemaker. Father Subhash Juan is her medical surrogate. She is a full code. REVIEW OF SYSTEMS: Noted due patient's sleeping, does attest to fatigue. PHYSICAL EXAMINATION GENERAL APPEARANCE: No acute distress, arousable. VITAL SIGNS: Temperature 98.9, pulse rate 74, respiratory rate 21 and satting 95% on room air, blood pressure 98/63. HEENT: Normocephalic, atraumatic. Pupils are equally round, reactive to light. Extraocular motions are intact. No scleral icterus. NECK: No cervical lymphadenopathy. LUNGS: Clear to auscultation with no wheezing, rales or rhonchi. CARDIOVASCULAR: Regular rate and rhythm. No murmurs, rubs or gallops ABDOMEN: Soft, nontender, nondistended. EXTREMITIES: Warm, well perfused. No peripheral edema. NEUROLOGIC: Full neurologic testing deferred due to the patient sleeping, but does arouse to loud voice if repeated. She is oriented to month and year, name , and situation. LABORATORY DATA: White count 6.6, hemoglobin 13.4, hematocrit 40, platelets 194. Sodium 138, potassium 4.0, chloride 106, carbon dioxide 23, BUN 11, creatinine is 1.07, glucose 111. Total bili 0.2, AST 17, ALT 12, alk phos 42, albumin 4.0. Beta- HCG 0.60. IMAGING: None. ASSESSMENT AND PLAN: Gerardo Celaya is a 37-year-old female with past medical history of epilepsy and IV drug history, on Suboxone; anxiety, depression presenting with another seizure, just seen Dr. John day prior, continued to up titrate her lamotrigine. I talked about the case with Dr. Talita Goode. She is being Keppra loaded and we are getting a Lamictal level now, we will continue 50 mg b.i.d. We will follow up on the EEG report. For her substance abuse history, we will continue her Suboxone 1 tab in the morning, half tablet at night. Continue for anxiety, depression also her gabapentin 600 mg q.i.d. and follow neurological recomendations in regard to that. She is a full code. She is being admitted to observation status on telemetry, [facility] for seizures as well. [id number]/[facility] #: [id number] JERICHO
[2017-07-23] MEDS ORDERED: Levothyroxine TAB* 75 MCG TAB PO SCH (06:00)
[2017-07-23 08:23] LABS: Urine Appearance Cloudy; Urine Blood Negative (Negative); Urine Color Yellow; Urine Ketones Trace (Negative); Urine Protein Negative (Negative); Urine Specific Gravity 1.032 (1.010-1.030); Urine Urobilinogen Negative (Negative)
[2017-07-23] MEDS ORDERED: NS 0.9% 500 ML* 500 ML IV ONE (08:32)
[2017-07-23] MEDS ORDERED: Buprenorphine/Naloxone 8-2 MG SL TAB* 1 TAB SL SCH (09:00)
[2017-07-23] MEDS: levETIRAcetam TAB* 500 MG PO SCH (09:12)
[2017-07-23] MEDS: Gabapentin CAP(*) 300 MG PO SCH ×2 (09:20→13:24)
[2017-07-23] MEDS: lamoTRIgine TAB(*) 25 MG PO SCH (09:20)
[2017-07-23] MEDS ORDERED: Phenytoin CAP(*) 100 MG CAP.ER PO ONE (14:57)
[2017-07-23 15:10] VITALS: BP 86/40
--- NOTE | 2017-07-24 13:28 | DS ---
CC: Dr. John; Dr. Goode * DISCHARGE SUMMARY: DATE OF ADMISSION: 07/22/17 DATE OF DISCHARGE: 07/23/17 PATIENT OF: Messi Gallagher MD ATTENDING HOSPITALIST: Magdiel Colon MD * (DICTATED BY ANTOLIN RAYMUNDO) PRIMARY CARE PROVIDER: Rito Rodriguez MD OUTPATIENT NEUROLOGIST: Gato John MD ADMISSION DIAGNOSES: 1. Seizure. 2. Anxiety and depression. 3. History of epilepsy. 4. Hypothyroidism. 5. History of IV drug abuse. DISCHARGE DIAGNOSES: 1. Seizure. 2. Anxiety and depression. 3. History of epilepsy. 4. Hypothyroidism. 5. History of IV drug abuse. ADMITTING PHYSICIAN: Messi Gallagher MD CONSULTATIONS: Dr. Goode from Neurology Department. CHIEF COMPLAINT: Seizure. HISTORY OF PRESENT ILLNESS: Gerardo is a 37-year-old female with past medical history significant for epilepsy and former IV drug abuser for which she has been on Suboxone for about 5 years. She was recently discharged from the hospital on 06/30/17 after she had episodes of seizure. At the time of discharge, she was on Keppra, which she had side effect to it basically mood reactions, for which she had been followed by Dr. John and at that time her Keppra was changed to Lamictal. She was seen again in the emergency room on with seizures, for which Dr. John was called at that time and he sent an order that of Ativan to her to use as needed at home and continue Lamictal as instructed. The patient tells me that her Lamictal dose has gradually increased, but had noticed no significant changes in her seizure activity. She presented to the emergency room yesterday after EMS was called who documented another seizure activity. She had some twitching movements in the ED and she was given another 2 mg of Ativan. She had a bedside EEG done and results was called in to Dr. Goode for a formal consultation. She was given a loaded dose of Keppra 1500 mg and also Lamictal loading dose, and the patient was admitted to the telemetry unit for observation. HOSPITAL COURSE: The patient was admitted to the telemetry unit for observation. She did relatively well after her admission and did not have any more seizure activity. She was seen and examined this morning, reports feeling tired; however, denies any tremors, shakes, chest pain or shortness of breath. She states that she did take her Suboxone on the morning prior, but unfortunately she ran out and she has an appointment to see her primary care physician who prescribed Suboxone to her. Dr. Goode was consulted and her EEG was read. We had a long discussion with the patient regarding her treatment regimen from seizure standpoint. We also discussed Suboxone arrangement for which unfortunately the hospital is not able to provide any additional tablets for the patient to take outside the premises since it needs to be prescribed by a certified provider under special [place] license number. The patient reports that she has been trying to get a hold of her primary care physician regarding renewal of her Suboxone prescription. She was seen this afternoon by Dr. Goode one more time, and her neurologic checks was done every 4 hours that appears to be stable with no evidence of seizure. Her vitals were reviewed and the patient has consistently showed hypotension despite multiple IV fluid boluses; however, she remained asymptomatic and denied any dizziness or syncope. She wishes to go home today and she was cleared from a neurologic standpoint to be discharged home on the following seizure medication. She will start phenytoin 300 mg p.o. q.h.s. for the next month and her Lamictal dose will be arranged as follows; she will get 100 mg p.o. q.h.s. and 25 mg p.o. q. a.m. for week #1 then 50 mg p.o. q.a.m. for week #2, then 75 mg p.o. q.a.m. for week #3, and then 100 mg p.o. q.a.m. for week #4. She will also continue her Synthroid 75 mcg once daily, Neurontin 600 mg p.o. q.i.d., and Suboxone as prescribed. ANTOLIN RAYMUNDO [id number]/[facility] #: [id number] MTDD
--- NOTE | 2017-07-24 14:09 | PN ---
CC: Dr. John FOLLOWUP NOTE: DATE OF FOLLOWUP: 07/23/17. HISTORY: The patient did not experience any further seizures overnight. She is eager to go home. She has concerns because she is on Suboxone and was supposed to receive her Suboxone from Dr. Rodriguez yesterday, but missed the appointment because of her seizures and being admitted here. She has not been able to get in touch with Dr. Rodriguez and is concerned about not having the medication over the holiday weekend. She does not want to continue taking levetiracetam as an outpatient secondary to mood side effects. I discussed other options with her. MEDICATIONS: 1. Suboxone 12 mg daily. 2. Gabapentin 600 mg 4 times daily. 3. Ibuprofen 800 mg q.8 hours p.r.n. 4. Lamotrigine 50 mg b.i.d. 5. Synthroid 75 mcg daily. EXAM: Vitals reviewed, unremarkable. She was fully awake, alert, oriented. Heart RRR, lungs CTAB. There is a laceration to the left side of her tongue. She has some bruises over the LEs. Skin is otherwise intact. No edema. On neurological exam, versions are full without nystagmus. Face is symmetric and full strength. Hearing intact to voice. Palate elevates symmetrically and tongue is midline. On motor exam, she has full strength proximally and distally in the upper and lower extremities. Sensation intact to LT. FTN without ataxia. She was not ambulated. LABORATORY DATA: Her urinalysis showed no evidence for infection. A tox screen this morning showed benzodiazepines, which she was given in the ER yesterday, but otherwise was negative. 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 She is currently on a lamotrigine titration taking 100 mg daily at this point, but is not at a therapeutic dose yet. We discussed temporary medications, which could reach a therapeutic level more quickly than lamotrigine in order to allow time to continue lamotrigine titration. She is not able to tolerate levetiracetam, though this would otherwise be a good choice, but because of mood side effects, this is not a good option for her. Depakote would be another potential option, but in the setting of slowly titrating lamotrigine, this can be tricky because of decreased metabolism of lamotrigine in the setting of Depakote administration. Therefore, we decided on temporary treatment with phenytoin 300 mg daily. She was given one dose prior to her discharge today. She was advised of potential side effects including blurred vision and unsteadiness on her feet. I would anticipate her needing to take this for 1 month while lamotrigine continues to be increased. In the meantime, she will continue 100 mg daily for several more days and then increase to 25 mg in the morning and 100 mg at night for a week, then continue to increase by 25 mg weekly in the morning until she is taking 100 mg twice daily. At that point, she can wean off phenytoin and she was given a one-month supply from the hospital. As an outpatient, she may benefit from a repeat MRI scan of the brain, as there was some evidence of focality when she had her secondarily generalized seizure in the emergency department with suggestion of seizure activity emanating from the left hemisphere. She is going to [employer] this weekend and was advised against riding any dangerous rides such as roller coasters or water rides. In terms of her issue with Suboxone, I defer to the hospitalist to try and sort that out, as I am not a registered prescriber and I am not aware of whether there is any possibility of us prescribing this medication temporarily for her, but I do not think this is possible. She should follow up with Dr. John in about a month. [id number]/[facility] #: [id number] MTDD
--- NOTE | 2017-07-27 13:03 | EEG ---
CC: Dr. John ELECTROENCEPHALOGRAPHY: DATE OF STUDY: 07/22/17 LOCATION: The patient is in the emergency department. ORDERING PHYSICIAN: Dr. Goode. HISTORY: This is a 37-year-old woman who came in to the emergency department with 3 seizures today, reportedly with the last seizure in the ER, which was witnessed by the nurse, she had right-sided hea d deviation. She had oral trauma associated with these seizures. She is on lamotrigine titration. EEG is requested to evaluate for epileptiform abnormalities. MEDICATIONS: 1. Suboxone. 2. Bupropion. 3. Gabapentin. 4. Levothyroxine. 5. Lamotrigine. The patient received Ativan 2 mg IV approximately 1 hour prior to this recording. DESCRIPTION OF PROCEDURE: The most notable feature of the EEG is the presence of intermittent polymo rphic mixed frequency slowing in the left temporoparietal region. Slowing is maximally expressed at T5 and P3. Otherwise, the waking background is briefly observed as the patient spends most of the EE G in the sleep state. There is appropriate organization with clearly defined anterior to posterior v oltage and frequency gradients. There is defined posterior rhythm of 8 Hz, which is symmetrical, but slower than expected for age. Anteriorly, there is an expected pattern of lower voltage, irregular, mixed faster frequencies. Hyperventilation and photic stimulation were not performed. The sleep background is appropriately organized with well-developed sleep spindles and vertex waves. The sleep transients showed appropriate morphology and were bilaterally synchronous and symmetrical. Throughout the recording, there were no definitive epileptiform discharges. IMPRESSION: This is an abnormal EEG recorded mostly in the sleep state due to the presence of interm ittent polymorphic swelling in the left temporoparietal region. These findings are suggestive of unde rlying neuronal dysfunction in this region. There are no epileptiform abnormalities. [id number]/[facility] #: [id number]
== END 2017-07-23 16:10 | disposition home or self-care (01) ==
LOC: ED 09:54 → MEDTELE 15:29
PROVIDERS: ADMIT Internal Medicine; ATTEND Internal Medicine
DX: G40.909 Epilepsy, unspecified, not intractable, without status epilepticus (principal); F41.8 Other specified anxiety disorders; E03.9 Hypothyroidism, unspecified; F11.20 Opioid dependence, uncomplicated; Z79.899 Other long term (current) drug therapy; F17.210 Nicotine dependence, cigarettes, uncomplicated
CPT/HCPCS: 36415; 80053; 80175; 80307; 81003; 84702; 85025; 95819; 96365; 96375; 99284; 99406; A9270-GY; G0378; J2060

== ENCOUNTER 2017-08-03 11:18 | Inpatient (IN) | payer OTHER ==
[2017-08-03 12:25] LABS: ABS Basophils 0 10^3/ul (0-0.2); ABS Eosinophils 0 10^3/ul (0-0.6); ABS Lymphocytes 1.2 10^3/ul (1.0-4.8); ABS Monocytes 0.3 10^3/ul (0-0.8); ABS Neutrophils 8.2 10^3/ul (1.5-7.7); ABS Nucleated RBC 0 10^3/ul; Eosinophil % 0 % (0-6); Hematocrit 42 % (35-47); Hemoglobin 14.7 g/dl (12.0-16.0); Lymphocyte % 11.9 % (25-47); Mean Corpuscular HGB Conc 35 g/dl (31-36); Mean Corpuscular Hemoglobin 34 pg (27-31); Mean Corpuscular Volume 98 fL (80-97); Nucleated Red Blood Cells % 0; Platelet Count 202 10^3/ul (150-450); Red Blood Count 4.33 10^6/ul (4.0-5.4); Red Cell Distribution Width 14 % (10.5-15); White Blood Count 9.7 10^3/ul (3.5-10.8)
[2017-08-03 12:49] LABS: EGFR Non-African American 72.2 (>60)
[2017-08-03] MEDS ORDERED: Phenytoin IV(*) 500 MG in NS 0.9% 100 ML* 90 ML IVPB ONE ×2 (15:22→15:59)
--- NOTE | 2017-08-03 15:43 | ED ---
Kai Aguirre Angela, scribed for Bunny Good MD on 08/03/17 at 1137 . Neurological HPI - HPI Summary HPI Summary: This pt is a 37 y/o female presenting to [facility] via EMS for a witnessed seizure. EMS reports the seizure was witnessed by pt's son. Per EMS the pt's family states the pt didn't know what medications she was taking and her temporary prescription ran out. Pt was seen 1.5 weeks ago as an inpatient. Per nurse's note, pt c/o nausea. PMHx includes seizures. Pt has hx of not following up with neurologist and hx of being noncompliant with medications. HPI IS LIMITED DUE TO LEVEL 5 CAVEAT - pt is in posictal state - History of Current Complaint Chief Complaint: EDSeizure Stated Complaint: SEIZURE Time Seen by Provider: 08/03/17 11:22 Hx Obtained From: Patient Hx From Patient Unobtainable Due To: Other - Level 5 caveat - pt is in posictal state Hx Last Menstrual Period: IUD Onset/Duration: Sudden Onset, Still Present Timing: Sudden Onset Current Severity: Moderate Pain Intensity: 0 Character: Other: - Seizure Seizure Character: Generalized Aggravating: Medication Change - noncompliant with medications Alleviating: Nothing Associated Signs and Symptoms: Positive: Seizure Related Hx: Seizure - Additional Pertinent History Primary Care Physician: [id number] - Allergy/Home Medications Allergies/Adverse Reactions: Allergies Allergy/AdvReac Type Severity Reaction Status Date / Time epinephrine Allergy Severe Unknown Verified 07/27/17 12:05 Reaction Details levetiracetam [From [facility]] Allergy Unknown Unknown Verified 07/27/17 12:05 Reaction Details Home Medications: Home Medications Buprenorphine/Naloxone SL TAB* [Suboxone 8-2 mg SL TAB*] 0.5 tab.sl SL QPM 08/03 [History Confirmed 08/03/17] PMH/Surg Hx/FS Hx/Imm Hx Endocrine/Hematology History: Reports: Hx Thyroid Disease - HYPOTHYROID Denies: Hx Diabetes Cardiovascular History: Denies: Hx Hypertension, Hx Pacemaker/ICD Respiratory History: Denies: Hx Asthma, Hx Chronic Obstructive Pulmonary Disease (COPD) GI History: Denies: Hx Ulcer History: Reports: Other Problems/Disorders - Cervical Ca Denies: Hx Renal Disease Sensory History: Denies: Hx Contacts or Glasses, Hx Hearing Aid Opthamlomology History: Denies: Hx Contacts or Glasses Neurological History: 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 Psychiatric History: Reports: Hx Depression, Hx Substance Abuse - opioid Denies: Hx Panic Disorder - Cancer History Cancer Type, Location and Year: Cervical cancer 2009 - Surgical History Surgery Procedure, Year, and Place: Cervical Cancer 2009 Infectious Disease History: No Infectious Disease History: Reports: Hx Hepatitis - Hepatitis C Denies: Hx Clostridium Difficile, Hx Human Immunodeficiency Virus (HIV), Hx of Known/Suspected MRSA, Hx Shingles, Hx Tuberculosis, Hx Known/Suspected VRE, Hx Known/Suspected VRSA, History Other Infectious Disease, Traveled Outside the [place] in Last 30 Days - Family History Known Family History: Positive: Cardiac Disease, Diabetes Negative: Hypertension - Social History Alcohol Use: None Substance Use Type: Reports: None Substance Use Comment - Amount & Last Used: denies Hx Tobacco Use: Yes Smoking Status (MU): Current Every Day Smoker Type: Cigarettes Amount Used/How Often: 1 ppd Length of Time of Smoking/Using Tobacco: 5 years Review of Systems - ROS Summary Review of Systems Summary: ROS IS LIMITED DUE TO LEVEL 5 CAVEAT - pt is in posictal state Negative: Fever Positive: Nausea Neurological: Other - POS: seizure, posictal state All Other Systems Reviewed And Are Negative: No Physical Exam - Summary Physical Exam Summary: VITAL SIGNS: Reviewed. GENERAL: Patient is a well-developed and nourished female who is lying comfortable in the stretcher. Patient is not in any acute respiratory distress. HEAD AND FACE: No signs of trauma. No ecchymosis, hematomas or skull depressions. No sinus tenderness. EYES: PERRLA, EOMI x 2, No injected conjunctiva, no nystagmus. No photophobia. EARS: Hearing grossly intact. Ear canals and tympanic membranes are within normal limits. MOUTH: Oropharynx within normal limits. NECK: Supple, trachea is midline, no adenopathy, no JVD, no carotid bruit, no c- spine tenderness, neck with full ROM. No meningeal signs, no Kernig's or brudzinskis signs. CHEST: Symmetric, no tenderness at palpation LUNGS: Clear to auscultation bilaterally. No wheezing or crackles. CVS: Regular rate and rhythm, S1 and S2 present, no murmurs or gallops appreciated. ABDOMEN: Soft, non-tender. No signs of distention. No rebound no guarding, and no masses palpated. Bowel sounds are normal. EXTREMITIES: FROM in all major joints, no edema, no cyanosis or clubbing. NEURO: Alert but not oriented. Pt is in postictal state. SKIN: Dry and warm Triage Information Reviewed: Yes Vital Signs On Initial Exam: Initial Vitals Temp Pulse Resp BP Pulse Ox 98.0 F 76 16 107/73 93 08/03/17 11:26 08/03/17 11:26 08/03/17 11:26 08/03/17 11:08/03/17 11:26 Vital Signs Reviewed: Yes Completion Of Physical Exam Limited Due To: Level 5 - pt is in postictal state Diagnostics - Vital Signs Vital Signs Temp Pulse Resp BP Pulse Ox 08/03/17 11: 98.0 F 76 16 107/73 93 - Laboratory Lab Results: Lab Results 08/03/17 08/03/17 08/03/17 Range/Units 12:18 12:18 12:18 WBC 9.7 (3.5-10.8) 10^3/ul RBC 4.33 (4.0-5.4) 10^6/ul Hgb 14.7 (12.0-16.0) g/dl Hct 42 (35-47) % MCV 98 H (80-97) fL MCH 34 H (27-31) pg MCHC 35 (31-36) g/dl RDW 14 (10.5-15) % Plt Count 202 (150-450) 10^3/ul MPV 7.0 L (7.4-10.4) um3 Neut % (Auto) 84.5 H (38-83) % Lymph % (Auto) 11.9 L (25-47) % [place] % (Auto) 3.3 (0-7) % Eos % (Auto) 0 (0-6) % Baso % (Auto) 0.3 (0-2) % Absolute Neuts (auto) 8.2 H (1.5-7.7) 10^3/ul Absolute Lymphs (auto) 1.2 (1.0-4.8) 10^3/ul Absolute Monos (auto) 0.3 (0-0.8) 10^3/ul Absolute Eos (auto) 0 (0-0.6) 10^3/ul Absolute Basos (auto) 0 (0-0.2) 10^3/ul Absolute Nucleated RBC 0 10^3/ul Nucleated RBC % 0 Sodium 136 L (139-145) mmol/L Potassium TNP Chloride 102 (101-111) mmol/L Carbon Dioxide 25 (22-32) mmol/L Anion Gap 9 (2-11) mmol/L BUN 12 (6-24) mg/dL Creatinine 0.89 (0.51-0.95) mg/dL Est GFR ( Amer) 92.8 (>60) Est GFR (Non-Af Amer) 72.2 (>60) BUN/Creatinine Ratio 13.5 (8-20) Glucose 99 (70-100) mg/dL Lactic Acid 1.0 (0.5-2.0) mmol/L Calcium 9.7 (8.6-10.3) mg/dL Magnesium TNP Total Bilirubin 0.40 (0.2-1.0) mg/dL AST TNP ALT 12 (7-52) U/L Alkaline Phosphatase 47 (34-104) U/L Total Creatine Kinase 123 (10-223) U/L Total Protein 7.8 (6.4-8.9) g/dL Albumin 4.4 (3.2-5.2) g/dL Globulin 3.4 (2-4) g/dL Albumin/Globulin Ratio 1.3 (1-3) Phenytoin < 2.5 L (10-20) mcg/mL Serum Alcohol < 10 (<10) mg/dL 08/03/17 Range/Units 13:10 WBC (3.5-10.8) 10^3/ul RBC (4.0-5.4) 10^6/ul Hgb (12.0-16.0) g/dl Hct (35-47) % MCV (80-97) fL MCH (27-31) pg MCHC (31-36) g/dl RDW (10.5-15) % Plt Count (150-450) 10^3/ul MPV (7.4-10.4) um3 Neut % (Auto) (38-83) % Lymph % (Auto) (25-47) % [place] % (Auto) (0-7) % Eos % (Auto) (0-6) % Baso % (Auto) (0-2) % Absolute Neuts (auto) (1.5-7.7) 10^3/ul Absolute Lymphs (auto) (1.0-4.8) 10^3/ul Absolute Monos (auto) (0-0.8) 10^3/ul Absolute Eos (auto) (0-0.6) 10^3/ul Absolute Basos (auto) (0-0.2) 10^3/ul Absolute Nucleated RBC 10^3/ul Nucleated RBC % Sodium (139-145) mmol/L Potassium 3.9 Chloride (101-111) mmol/L Carbon Dioxide (22-32) mmol/L Anion Gap (2-11) mmol/L BUN (6-24) mg/dL Creatinine (0.51-0.95) mg/dL Est GFR ( Amer) (>60) Est GFR (Non-Af Amer) (>60) BUN/Creatinine Ratio (8-20) Glucose (70-100) mg/dL Lactic Acid (0.5-2.0) mmol/L Calcium (8.6-10.3) mg/dL Magnesium 2.1 Total Bilirubin (0.2-1.0) mg/dL AST 18 ALT (7-52) U/L Alkaline Phosphatase (34-104) U/L Total Creatine Kinase (10-223) U/L Total Protein (6.4-8.9) g/dL Albumin (3.2-5.2) g/dL Globulin (2-4) g/dL Albumin/Globulin Ratio (1-3) Phenytoin (10-20) mcg/mL Serum Alcohol (<10) mg/dL Result Diagrams: 08/03/17 12:18 08/03/17 13:10 Lab Statement: Any lab studies that have been ordered have been reviewed, and results considered in the medical decision making process. - EKG 11:35 Cardiac Rate: NL - 65 bpm EKG Rhythm: Sinus Rhythm EKG Interpretation: No ST elevations. Re-Evaluation - Re-Evaluation First Eval Re-Evaluation Time: 14:06 Comment: Pt is acting confused. Second Eval Re-Evaluation Time: 15:22 Comment: Dr. John in to see the pt. Course/Dx - Course Assessment/Plan: This patient is a 37-year-old female who presents to the emergency department with a chief complaint of having a seizure episode. As per EMS the patient had a seizure witnessed by a family members but unknown time. The patient is in a postictal state therefore unable to obtain good history from the patient. Blood work without any significant abnormality therefore phenytoin level less than 2.5. I discussed the case with Dr. John from neurology who came and saw the patient and after his assessment he requested to give Phenytoin 100 mg IV. He also requested an stat EEG. He also recommends for the patient to be admitted to the hospitalist services for further workup and management. I discussed the case with Dr. Leonard from the hospitalist services were accepted the patient for admission. The patient is hemodynamically stable alert and oriented 3 - Differential Dx Differential Diagnoses Neuro: Positive: Migraine, Seizure Disorder - Diagnoses Provider Diagnoses: Seizure - Physician Notifications Discussed Care Of Patient With: Gato John Time Discussed With Above Provider: 14:12 Instructed by Provider To: Other - I discussed pt care with Dr. John, neurologist, who reports to draw dilantin and lamictal levels. He will consult on the pt. [15:37] I discussed case with Dr. Leonard, hospitalist, who has accepted the pt for admission. Discharge - Sign-Out/Discharge Documenting (check all that apply): Discharge/Admit/Transfer - Admit - Discharge Plan Condition: Stable Disposition: ADMITTED TO [facility] Referrals: Jerel Raymond MD [Primary Care Provider] - The documentation as recorded by the Kai harden Angela accurately reflects the service I personally performed and the decisions made by Florentino glez Walter, MD.
[2017-08-03] MEDS ORDERED: PHENYTOIN ONE (15:54)
[2017-08-03] MEDS ORDERED: LORazepam INJ* 2 MG/ML 1 ML VIAL ONE (15:59)
[2017-08-03] MEDS ORDERED: LORazepam INJ* 2 MG/ML 1 ML VIAL IV PUSH ONE ×2 (15:59→16:08)
[2017-08-03] MEDS ORDERED: NS 0.9% 1000 ML* 1,000 ML IV ONE (16:03)
[2017-08-03] MEDS ORDERED: Phenytoin CAP(*) 100 MG CAP.ER PO ONE ×3 (16:11→22:00)
[2017-08-03] MEDS ORDERED: Al Hydrox/Mg Hydrox/Simet LIQ* 30 ML UDC PO PRN (17:17)
[2017-08-03] MEDS ORDERED: Magnesium Hydroxide LIQ* 30 ML UDC PO PRN (17:17)
[2017-08-03] MEDS ORDERED: Ondansetron 40 MG VIAL* 2 MG/ML 20 ML VIAL IV PRN (17:17)
[2017-08-03] MEDS ORDERED: LORazepam TAB(*) 1 MG PO PRN (17:29)
[2017-08-03] MEDS ORDERED: NS 0.9% 1000 ML* 1,000 ML IV SCH (17:30)
[2017-08-03] MEDS ORDERED: Buprenorphine/Naloxone 8-2 MG SL TAB* 1 TAB SL SCH (18:00)
--- NOTE | 2017-08-03 21:11 | CONS ---
NEUROLOGY CONSULTATION: DATE OF CONSULT: 08/03/17 LOCATION: She is in the emergency room. REFERRING PHYSICIAN: Dr. Good. CHIEF COMPLAINT: Seizures. HISTORY OF PRESENT ILLNESS: Gerardo Celaya is a 37-year-old woman well-known to me with a history of epilepsy. I had just seen her in the office within the last couple of weeks. She has been noncompliant over the years and it has been tough to manage her as a result. She was on Keppra at one point, but felt it aggravated her mood when taken. She was started on lamotrigine by myself a few weeks ago but was not taking that as prescribed. When I saw her in the office last, she had some topiramate in a bottle, which was just 10 tablets prescribed that she said she was taking every day for about 3 weeks. There were still a number of tablets in the bottle. She was prescribed Dilantin after she was in the hospital, just about a week and a half ago. The hope was that it would hold her over until the lamotrigine can get to a therapeutic level. She came in today apparently with repetitive seizures. When I first saw her, she had multiple myoclonic movements of her hands and face but was able to answer questions. At times, she did not answer questions and other times, she did. She was able to follow some commands. She had a bite santa in the tip of her tongue. An EEG was hooked up and she was shown to have a fairly continues high - voltage slow wave activity. It was more prominent from the left hemisphere than the right. She was extremely combative but we were able to get some lorazepam and the epileptiform-appearing discharges rapidly subsided. She remained somewhat combative and 2 more milligrams of Ativan was given and she became more somnolent and her EEG became more normal. She started to receive phenytoin infusion, but she became more awake and agitated. She agreed to take phenytoin tablets, but refused any more intravenous medications and had to be held. She ripped off EEG leads as well. We were able to just recently give 500 mg of Dilantin tablets into her. She is now sleeping and her EEG looks to be consistent with stage II sleep. PAST MEDICAL HISTORY: Notable for opiate addiction, on chronic Suboxone therapy. She has a mood disorder, anxiety disorder, hypothyroidism. PAST SURGICAL HISTORY: She had surgery for cervical cancer in 2009. MEDICATIONS: At home, are somewhat unreliable. 1. She is supposed to be taking lamotrigine, I believe, at this point 50 mg in the morning and 100 mg at bedtime. 2. She is supposed to be on phenytoin 300 mg p.o. q.h.s., but has an undetectable blood level. 3. Levothyroxine 75 mcg p.o. q. day. 4. Gabapentin 600 mg p.o. four times a day. 5. Suboxone/naloxone 09/30 sublingual q.a.m. ALLERGIES: She is listed to have an allergy to LEVETIRACETAM, but actually she had mood problems from it. She is listed as being allergic to EPINEPHRINE but it was an anxiety side effect. REVIEW OF SYSTEMS: Review of systems from the patient is really not possible right now. She did deny headache. Of note, I could not get any consistent responses. PHYSICAL EXAM: Temperature is 98.0, blood pressure about 100 to 110 systolic/ 70 to 80 diastolic, heart rate is in the 60s on the monitor, respiratory rate 19 , and oxygen saturation is 97%. She has a fairly recent tongue bite santa on the tip of her tongue and a little bite on the right lateral side of the tongue. Oral mucosa is moist. Head is atraumatic. Heart is in a regular rhythm. Eye movements seem to be full and she had seemed to have good visual recognition. She tracks appropriately. I get her to track my finger briefly and I do not see any nystagmus. She had full horizontal movements. Facial musculature is symmetric. There is intermittent myoclonic-like twitching of facial muscles little bit more on the left side of the face than the right, but bilateral. She had intermittent myoclonic twitching of the arms and trunk and it appeared to be multifocal. She had good strength in all limbs. Plantar responses are flexor bilaterally. She is extremely agitated when she is aroused particularly when we tried to use her IV access. She screams and swears. IMPRESSION AND PLAN: Impression is that of subclinical status. She is very hard to manage because of the agitation and behavioral issues. We were able to give 500 mg of p.o. Dilantin and now she is sleeping. Her EEG seems to have normalized into stage II sleep. Ideally, I would continue this EEG monitoring, but I do not think she will tolerate it. I am going to recommend that she be put in intensive care unit. We will try to get some more IV Dilantin when she is sleepy. I will also try to give her some lorazepam 1 mg every 6 hours IV to try to maintain seizure control as well as some degree of sedation. If she will be cooperative, then we will repeat her EEG tomorrow morning provided she gets through the night without any major difficulties. I plan on giving her p.r.n. Ativan for facial or extremity myoclonus as well. I will discuss the plan with the hospitalist. [id number]/[facility] #: [id number] JERICHO
--- NOTE | 2017-08-03 21:52 | HP ---
CC: Dr. John; Dr. Rodriguez * ADMITTING HISTORY AND PHYSICAL: DATE OF ADMISSION: 08/03/17 PATIENT OF: Dr. Rach Leonard.* (DICTATED BY ANTOLIN RAYMUNDO) ADMITTING PROVIDER: Dr. Leonard. PRIMARY CARE PROVIDER: Dr. Rito Rodriguez. OUTPATIENT NEUROLOGIST: Dr. John. CHIEF COMPLAINT: Persistent seizures. HISTORY OF PRESENT ILLNESS: Gerardo is a 37-year-old female, who is well known to us from prior admission related to epilepsy with frequent seizure disorder. Her last admission was approximately 2 weeks ago for which she stayed at the telemetry unit overnight for observation. She has been going to Dr. John as an outpatient and there has been some modification to her dose of Lamictal and Dilantin. She came to the emergency room today with acute onset of seizure activity and was able to communicate; however, she continued to have twitching of her upper extremities and facial muscles. The patient was seen and evaluated by Dr. John here in the emergency room and upon going to obtain a formal history and physical, the patient was already sedated with multiple doses of Ativan and Dilantin. Most of the history obtained via records and nursing notes. PAST MEDICAL HISTORY: Significant for epilepsy, IV drug use for which she has been on Suboxone, hypothyroidism, anxiety, depression, tobacco abuse. PAST SURGICAL HISTORY: None on record. CURRENT MEDICATIONS: Her medications at home include: 1. Suboxone 8/2 mg sublingual tablet one tablet in a.m. and half a tablet in p.m. 2. Neurontin 600 mg p.o. 4 times a day. 3. Lamictal 100 mg p.o. q.h.s. 4. Lamictal 50 mg p.o. b.i.d. 5. Synthroid 75 mcg p.o. daily. 6. Dilantin 300 mg p.o. q.h.s. ALLERGIES: She is allergic to EPINEPHRINE and LEVETIRACETAM. FAMILY HISTORY: Both parents with history of depression, youngest son also has seizure disorder, and other 3 sons in good health. SOCIAL HISTORY: The patient is a smoker of 1 pack per day. She denies alcohol abuse or drinking, but she also has a history of heroin abuse. She is a homemaker and her father, Subhash Juan is her medical surrogate carrier. The patient is also a full code. REVIEW OF SYSTEMS: Unable to obtain due to the patient's sedation. PHYSICAL EXAMINATION GENERAL: She appears comfortable, sleeping in bed, sometimes awake to command; however, back to sleep within 2 seconds due to sedation. VITAL SIGNS: Most recent set of vitals was blood pressure of 91/47, pulse of 78 , temperature of 98.0, respirations of 17, and O2 sat of 94% on room air. The remainder of the physical exam is unable to obtain due to the patient's sedation. LABORATORY WORKUP: She had a CBC today revealing white count of 9000, hemoglobin of 14.7, hematocrit of 42, and platelets of 202. Her chemistry with sodium of 136, potassium 3.9, chloride 102, CO2 25, BUN of 12, and creatinine of 0.9. Her LFTs, glucose, magnesium were all within normal limits. Her toxicology screening with phenytoin level less than 2.5 and serum alcohol less than 10. IMPRESSION: A 37-year-old female with known history of epilepsy along with hypothyroidism, anxiety, and depression and IV drug use in the remote past, who presented to the emergency room with questionable status epilepticus earlier today. PLAN: 1. Status epilepticus. The patient was seen by Dr. John and multiple doses of Dilantin were given as well as Lamictal. She also received more than one dose of Ativan and currently is sedated and lying comfortably on bed. Remainder of history and physical was unable to be obtain at this time. Dr. John had put some orders for adjustment of her medication starting from tomorrow morning. He also will obtain a Lamictal and Dilantin level tomorrow as well as urinalysis and baseline blood work. She will be closely monitored in the intensive care unit and we will continue to give Ativan as needed order to control her seizure activity. An EEG was done and read by Dr. John and another one is in order for tomorrow. 2. Hypothyroidism. We will continue her levothyroxine as prescribed. 3. History of IV drug abuse. We will continue her Suboxone as directed as an outpatient. 4. DVT prophylaxis. The patient is a low risk and will use sequential stocking device. 5. Code status. The patient is a full code. TIME SPENT: I have spent about 30 minutes admitting this patient with less than 5 minutes spent in the room due to her current sedative status and we will plan on calling her father, Subhash, to discuss the plan of care later this evening. We will follow her up accordingly. ANTOLIN RAYMUNDO [id number]/[facility] #: [id number] JERICHO
[2017-08-03] MEDS: LORazepam INJ* 2 MG/ML 1 ML VIAL IV PUSH SCH (22:51)
[2017-08-03] MEDS: lamoTRIgine TAB(*) 25 MG PO SCH (22:52)
[2017-08-03] MEDS: Gabapentin CAP(*) 300 MG PO SCH (22:52)
[2017-08-03] MEDS ORDERED: PHENYTOIN IVPB ONE (23:30)
[2017-08-03] MEDS ORDERED: NS 0.9% IVPB ONE (23:30)
[2017-08-04 01:27] LABS: Urine Appearance Cloudy; Urine Blood Negative (Negative); Urine Color Yellow; Urine Ketones 1+ (Negative); Urine Protein Negative (Negative); Urine Specific Gravity 1.038 (1.010-1.030); Urine Urobilinogen Negative (Negative)
[2017-08-04] MEDS ORDERED: NS 0.9% 1000 ML* 1,000 ML IV ONE (03:08)
[2017-08-04] MEDS: LORazepam INJ* 2 MG/ML 1 ML VIAL IV PUSH SCH ×2 (03:33→08:14)
[2017-08-04] MEDS ORDERED: Levothyroxine TAB* 75 MCG TAB PO SCH (06:00)
[2017-08-04] MEDS: Gabapentin CAP(*) 300 MG PO SCH (08:14)
[2017-08-04] MEDS ORDERED: Phenytoin CAP(*) 100 MG CAP.ER PO SCH (09:00)
[2017-08-04] MEDS ORDERED: Phenytoin IV(*) 100 MG in NS 0.9% 50 ML* 18 ML IV SCH (09:00)
[2017-08-04] MEDS ORDERED: Buprenorphine/Naloxone 8-2 MG SL TAB* 1 TAB SL SCH (09:00)
[2017-08-04 10:41] VITALS: BP 107/55
[2017-08-04 10:56] LABS: EGFR Non-African American 85.3 (>60)
[2017-08-04] MEDS: lamoTRIgine TAB(*) 25 MG PO SCH (11:06)
--- NOTE | 2017-08-05 13:01 | DS ---
CC: Dr. Rito Rodriguez; Dr. Gato John * DISCHARGE SUMMARY: DATE OF ADMISSION: 08/03/17 DATE OF DISCHARGE AGAINST MEDICAL ADVICE: 08/04/17 ATTENDING FOR THIS ADMISSION: Dr. Rach Leonard. MY ATTENDING FOR TODAY: Dr. Leonard.* (DICTATED BY CJ SALDANA NP) PRIMARY CARE PROVIDER: Dr. Rito Rodriguez NEUROLOGIST: Dr. Gato John. REASON FOR ADMISSION STATUS: Seizures. HOSPITAL COURSE: This is a 37-year-old female patient who has history of epilepsy with frequent breakthrough seizures. Patient was admitted 2 weeks prior in which she had been admitted overnight for observation. She sees Dr. John for neurology as an outpatient. She was in the middle of titrating her medications. Patient states that at the time she was admitted that she had ran out of her medications and was brought in by emergency services in a postictal state after having also received multiple doses of IV Ativan and loading doses of Dilantin. Patient was admitted to the intensive care unit secondary to hypotension and closer monitoring. The patient was to be seen by Neurology, who made recommendations for her medication regimen; however, there has been a compliance issue as an outpatient with the patient taking her proper medications. Also of significant note, patient does have history of substance abuse and is on Suboxone but urinalysis toxicology also showed she was positive for amphetamines and cocaine. I was called to the bedside as the patient stated she was going to leave against medical advice out of the ICU today. I did get to briefly speak to the patient; she would not let me examine her. Patient was very angry, combative, took off her gown and clothes, was getting ready to pull her IV out but allowed the nursing staff to do that. Patient stated "I have s--t going on at home." When I explained to the patient that leaving could result in decompensation, further seizures, and ; patient answered "whatever." Patient did sign against medical advice form. She does have capacity. Patient stated her understanding of signing out against medical advice and still chose to do so. Documentation by the nursing staff was available in the patient's chart and again the patient did sign paper work against medical advice. CJ SALDANA, DETAILER [id number]/[facility] #: [id number] [facility]ITAL[facility]ela
--- NOTE | 2017-08-06 10:40 | EEG ---
ELECTROENCEPHALOGRAPHY: DATE OF STUDY: 08/03/17 REFERRING PHYSICIAN: Dr. Good CLINICAL PROBLEM: The patient with confusion and history of epilepsy presented to the emergency dep[facility]. This recording is performed in the emergency room. MEDICATIONS: The patient was supposed to be on Dilantin, lamotrigine, and gabapentin. REPORT: This 16-channel EEG is remarkable for background rhythms. The occiput tracing consisted of diffuse high voltage slowing more prominent and of higher voltage in the left hemisphere. The patien t is clinically confused and intermittently agitated. Occasional spike discharges are seen from the left central temporal region and less frequently from the right mid temporal region. The high voltage paroxysmal discharges wax and wane. The patient gets agitated and movement artifact obscures the ba ckground. The patient was given lorazepam 2 mg intravenously with improvement in background rhythm s oon after the injection. There are still paroxysms of generalized slowing worse in the left hemispher e with intermingled spikes. The patient remains agitated intermittently and yelling. A second dose of 2 mg of lorazepam was given and background rhythms become much more normalized. There were occasi onal bursts of high-voltage slowing mainly from the left hemisphere or from the frontal central regio n. The patient rapidly goes into stage 2 sleep with vertex slowing and sleep spindles seen parasagit tally. The patient intermittently arouses with paroxysms of left and central slowing. Patient takes oral Dilantin during the recording. The patient sleeps for the latter third of the recording mainly in stage 2 sleep but with some intermingled slow wave sleep. INTERPRETATION: Abnormal EEG due to paroxysms of generalized slowing more from the left hemisphere t alva the right as well as bihemispheric independent spike discharges seen intermittently. The tracing normalizes into stage 2 sleep after a total of 4 mg of intravenous lorazepam. 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 [id number]/[facility] #: [id number]
== END 2017-08-04 11:30 | disposition left against medical advice (07) | DRG 53 ==
LOC: ED 11:18 → ICU 18:06
PROVIDERS: ADMIT Internal Medicine; ATTEND Internal Medicine
DX: G40.401 Other generalized epilepsy and epileptic syndromes, not intractable, with status epilepticus (principal); I95.9 Hypotension, unspecified; F15.10 Other stimulant abuse, uncomplicated; F14.10 Cocaine abuse, uncomplicated; E03.9 Hypothyroidism, unspecified; F41.9 Anxiety disorder, unspecified; F32.9 Major depressive disorder, single episode, unspecified; F17.210 Nicotine dependence, cigarettes, uncomplicated; F11.10 Opioid abuse, uncomplicated; Z91.14 Patient's other noncompliance with medication regimen; Z88.8 Allergy status to other drugs, medicaments and biological substances; Z82.0 Family history of epilepsy and other diseases of the nervous system; Z81.8 Family history of other mental and behavioral disorders; Z85.41 Personal history of malignant neoplasm of cervix uteri; Z83.3 Family history of diabetes mellitus; Z82.49 Family history of ischemic heart disease and other diseases of the circulatory system; Z90.712 Acquired absence of cervix with remaining uterus; Z86.19 Personal history of other infectious and parasitic diseases
CPT/HCPCS: 36415; 80048; 80053; 80175; 80185; 80307; 80320; 81003; 82550; 83605; 83735; 85025; 87641; 93005; 95812; 95819; 99285; A9270-GY; G0480; J1165; J2060

== ENCOUNTER → 2017-11-10 13:51 | Emergency (ER) | payer OTHER ==
[~2017-11-10 13:51] MED LIST: Buprenorphine/Naloxone 8-2 MG SL TAB* 1 TAB PO ONE; LORazepam INJ* 2 MG/ML 1 ML VIAL IV PUSH ONE; LORazepam INJ* 2 MG/ML 1 ML VIAL ONE; NS 0.9% 1000 ML* 1,000 ML IV ONE
[2017-11-10 15:21] LABS: ABS Basophils 0 10^3/ul (0-0.2); ABS Eosinophils 0 10^3/ul (0-0.6); ABS Lymphocytes 0.9 10^3/ul (1.0-4.8); ABS Monocytes 0.3 10^3/ul (0-0.8); ABS Neutrophils 4.1 10^3/ul (1.5-7.7); ABS Nucleated RBC 0 10^3/ul; Eosinophil % 0.3 % (0-6); Hematocrit 38 % (35-47); Lymphocyte % 17.3 % (25-47); Mean Corpuscular HGB Conc 34 g/dl (31-36); Mean Corpuscular Hemoglobin 33 pg (27-31); Mean Corpuscular Volume 98 fL (80-97); Mean Platelet Volume 7.4 um3 (7.4-10.4); Nucleated Red Blood Cells % 0; Platelet Count 188 10^3/ul (150-450); Red Blood Count 3.93 10^6/ul (4.00-5.40); Red Cell Distribution Width 13 % (10.5-15); White Blood Count 5.3 10^3/ul (3.5-10.8)
[2017-11-10 15:30] LABS: INR 0.91 (0.77-1.02)
--- NOTE | 2017-11-10 15:33 | ED ---
Syncope/Near Syncope - HPI Summary HPI Summary: This patient is a 37 year old F presenting to [facility] with a chief complaint of sz at 1300. Sz was witnessed by a friend, pt stated she felt dizzy and then became symptomatic. Pt had another sz in the ED at 1405. Pt endorses her last sz was 2 months ago (08/2017). Pt denies hitting her head, fever, and chills. She endorses lower abd pain. Pt notes she took her medications this AM. PMHx sz. - History Of Current Complaint Chief Complaint: EDSeizure Time Seen by Provider: 11/10/17 14:11 Hx Obtained From: Patient Onset/Duration: Sudden Onset, Lasting Minutes, Resolved Timing: Intermittent Episode Lasting - seconds Context: Witnessed, Loss Of Consciousness Activity At Onset: At Rest Associated Head Trauma: No Aggravating Factor(s): Nothing Alleviating Factor(s): Spontaneous Resolution Associated Signs And Symptoms: Dizzy, Seizure Related History: Similar Episode/Dx as - PMHx szs Frequency: Episodes x___ - 2 - Allergies/Home Medications Allergies/Adverse Reactions: Allergies Allergy/AdvReac Type Severity Reaction Status Date / Time epinephrine Allergy Severe Unknown Verified 07/27/17 12:05 Reaction Details levetiracetam [From [facility]] Allergy Unknown Unknown Verified 07/27/17 12:05 Reaction Details Home Medications: Home Medications ARIPiprazole TAB* [Abilify 2 MG TAB*] 2 mg PO DAILY 11/10/17 [History Confirmed 11/10/17] Buprenorphine HCl/Naloxone HCl [Suboxone 12 mg-3 mg Sl Film] 1 film SL BID 11/10 [History Confirmed 11/10/17] Gabapentin CAP(*) [Neurontin 400 mg CAP(*)] 800 mg PO QID 11/10/17 [History Confirmed 11/10/17] Methylphenidate TAB* [Ritalin TAB*] 20 mg PO BID 11/10/17 [History Confirmed 02/15] Phenytoin CAP(*) [Dilantin CAP(*)] 200 mg PO BEDTIME 11/10/17 [History Confirmed 11/10/17] lamoTRIgine TAB(*) [LaMICtal TAB(*)] 25 mg PO BID 11/10/17 [History Confirmed ] PMH/Surg Hx/FS Hx/Imm Hx Endocrine/Hematology History: Reports: Hx Thyroid Disease - HYPOTHYROID Denies: Hx Diabetes Cardiovascular History: Denies: Hx Hypertension, Hx Pacemaker/ICD Respiratory History: Denies: Hx Asthma, Hx Chronic Obstructive Pulmonary Disease (COPD) GI History: Denies: Hx Ulcer History: Reports: Other Problems/Disorders - Cervical Ca Denies: Hx Renal Disease Sensory History: Denies: Hx Contacts or Glasses, Hx Legally Blind, Hx Deafness, Hx Hearing Aid Opthamlomology History: Denies: Hx Contacts or Glasses, Hx Legally Blind EENT History: Denies: Hx Deafness Neurological History: Reports: Hx Headaches - frequent, severe headaches during adolescent years, Hx Seizures - epilespsy Psychiatric History: Reports: Hx Depression, Hx Substance Abuse - opioid Denies: Hx Panic Disorder - Cancer History Cancer Type, Location and Year: Cervical cancer 2009 - Surgical History Surgery Procedure, Year, and Place: Cervical Cancer 2009 Infectious Disease History: No Infectious Disease History: Reports: Hx Hepatitis - Hepatitis C Denies: Hx Clostridium Difficile, Hx Human Immunodeficiency Virus (HIV), Hx of Known/Suspected MRSA, Hx Shingles, Hx Tuberculosis, Hx Known/Suspected VRE, Hx Known/Suspected VRSA, History Other Infectious Disease, Traveled Outside the [place] in Last 30 Days - Family History Known Family History: Positive: Cardiac Disease, Diabetes Negative: Hypertension - Social History Occupation: Unemployed Lives: Alone Alcohol Use: pt family denies Substance Use Type: Reports: None Substance Use Comment - Amount & Last Used: hx opiod use Hx Tobacco Use: Yes Smoking Status (MU): Current Every Day Smoker Type: Cigarettes Amount Used/How Often: 1 ppd Length of Time of Smoking/Using Tobacco: 5 years Have You Smoked in the Last Year: Yes Review of Systems Negative: Fever, Chills Positive: Abdominal Pain - lower Positive: no symptoms reported Neurological: Other - post-ictal state Positive: Syncope - sz All Other Systems Reviewed And Are Negative: Yes Physical Exam - Summary Physical Exam Summary: General: post-ictal, no pain distress Skin: warm, color reflects adequate perfusion, dry Head: normal Eyes: EOMI, HERNAN ENT: normal Neck: supple, non-tender Respiratory: CTA, breath sounds present Cardiovascular: RRR Abdomen: soft, non-tender Bowel: present Musculoskeletal: normal, strength/ROM intact Neurological: sensory/motor intact, A&O x3, post-ictal Psychological: affect/mood appropriate Triage Information Reviewed: Yes Vital Signs On Initial Exam: Initial Vitals Temp Pulse Resp BP Pulse Ox 98.6 F 73 16 100/70 97 11/10/17 14:02 11/10/17 14:02 11/10/17 14:02 11/10/17 14:02 11/10/17 14:02 Vital Signs Reviewed: Yes Diagnostics - Vital Signs Vital Signs Temp Pulse Resp BP Pulse Ox 11/10/17 15:21 76 16 96/79 93 11/10/17 15:14 99 11/10/17 15:00 18 11/10/17 14:32 17 120/62 11/10/17 14:29 19 11/10/17 14:19 17 109/55 11/10/17 14:10 24 11/10/17 14:02 98.6 F 73 16 100/70 97 - Laboratory Lab Results: Lab Results 11/10/17 Range/Units 15:12 WBC 5.3 (3.5-10.8) 10^3/ul RBC 3.93 L (4.00-5.40) 10^6/ul Hgb 13.0 (12.0-16.0) g/dl Hct 38 (35-47) % MCV 98 H (80-97) fL MCH 33 H (27-31) pg MCHC 34 (31-36) g/dl RDW 13 (10.5-15) % Plt Count 188 (150-450) 10^3/ul MPV 7.4 (7.4-10.4) um3 Neut % (Auto) 76.6 (38-83) % Lymph % (Auto) 17.3 L (25-47) % Logan % (Auto) 5.5 (0-7) % Eos % (Auto) 0.3 (0-6) % Baso % (Auto) 0.3 (0-2) % Absolute Neuts (auto) 4.1 (1.5-7.7) 10^3/ul Absolute Lymphs (auto) 0.9 L (1.0-4.8) 10^3/ul Absolute Monos (auto) 0.3 (0-0.8) 10^3/ul Absolute Eos (auto) 0 (0-0.6) 10^3/ul Absolute Basos (auto) 0 (0-0.2) 10^3/ul Absolute Nucleated RBC 0 10^3/ul Nucleated RBC % 0 Result Diagrams: 11/10/17 15:12 11/10/17 15:12 Lab Statement: Any lab studies that have been ordered have been reviewed, and results considered in the medical decision making process. Course/Dx Course Of Treatment: DISCUSSED WITH DR MCGEE, NEUROLOGY. HE RECOMMENDED ADDING LAOTRIGINE 25MG IN THE AM FOR 1 WEEK THEN INCREASING IT TO 50MG IN THE AM. WILL CONTINUE THE LAMOTRIGINE 100MG IN THE EVENING AND TOPAMAX 50MG IN AM AND 100MG IN PM AND GABAPENTIN 800MG PO QID (THE PATIENT REPORTS THE GABEPENTIN WAS INCREASED FOR 600MG QID TO 800MG QID BY REACH). PATIENT ALSO MISSED HER REACH APPOINTMENT TODAY SO, 6 DOSES OF SUBOXONE 8-2 PROVIDED TO COVER UNTIL SHE CAN GET INTO REACH. CRITICAL CARE TIME LESS THAN 30 MINUTES. - Diagnoses Provider Diagnoses: Epilepsy - Physician Notifications Discussed Care of Patient With: Jose Luis Mcgee Time Discussed With Above Provider: 16:06 Instructed by Provider To: Other - Last note they have on pt shows 100 mg lamictal in PM, gabapentin 600 mg POQID, topamax 50 mg AM and 100 mg PM. He recommends increasing lamictal by 25 mg AM for 1 week, then increase further by another 25 mg in the AM for another week, and to follow up with neurology. Discharge - Sign-Out/Discharge Documenting (check all that apply): Patient Departure - discharge - Discharge Plan Condition: Stable Disposition: HOME Patient Education Materials: Hypothyroidism (ED), Epilepsy (ED), Opioid Dependence (ED) Referrals: Jerel Raymond MD [Primary Care Provider] - Additional Instructions: CONTINUE THE GABAPENTIN 800MG FOUR TIMES A DAY AND TOPAMAX 50MG IN THE MORNING AND 100MG IN THE EVENING. CONTINUE THE LAMOTRIGINE 100MG IN THE EVENING, ADD 25MG IN THE MORNING FOR 1 WEEK THEN, INCREASE TO 50MG IN THE MORNING. TAKE YOUR THYROID MEDICATION DIRECTED AND FOLLOW UP WITH YOUR PRIMARY CARE DOCTOR. FOLLOW UP WITH NEUROLOGY. GET RECHECKED FOR ANY WORSENING OF YOUR CONDITION OR QUESTIONS OR CONCERNS. - Billing Disposition and Condition Condition: STABLE Disposition: Home - Attestation Statements Document Initiated by Scribe: Yes Documenting Scribe: Dominik Bezirganian Provider For Whom Scribe is Documenting (Include Credential): Dr. Sukh Owen MD Scribe Attestation: I, Dominik Rodriguez, scribed for Dr. Sukh Owen MD on 11/10/17 at 1821. Scribe Documentation Reviewed: Yes Provider Attestation: The documentation as recorded by the Dominik harden accurately reflects the service I personally performed and the decisions made by me, Dr. Sukh Owen MD
[2017-11-10 15:37] LABS: Urine Appearance Cloudy; Urine Blood Negative (Negative); Urine Color Yellow; Urine Ketones Trace (Negative); Urine Protein 1+(30 mg/dL) (Negative); Urine Red Blood Cell Trace(0-2/hpf) (Absent); Urine Specific Gravity 1.025 (1.010-1.030); Urine Urobilinogen Negative (Negative); Urine White Blood Cell Trace(0-5/hpf) (Absent)
[2017-11-10 15:39] LABS: EGFR Non-African American 75.1 (>60)
[2017-11-10 17:35] VITALS: BP 113/67
== END | disposition home or self-care (01) ==
LOC: ED 13:51
DX: G40.909 Epilepsy, unspecified, not intractable, without status epilepticus (principal); R42 Dizziness and giddiness; R10.9 Unspecified abdominal pain; F17.210 Nicotine dependence, cigarettes, uncomplicated; R55 Syncope and collapse
CPT/HCPCS: 36415; 80053; 80171; 80175; 80185; 80201; 81003; 81015; 82550; 83605; 83690; 83735; 84443; 84702; 85025; 85610; 85730; 86140; 87086; 96374; 96375; 99284; A9270-GY; J2060

== ENCOUNTER 2023-05-12 17:02 | Observation (INO) ==
[2023-05-12 17:38] LABS: ABS Lymphocytes 0.3 10^3/uL (1.0-4.8); ABS Monocytes 0.3 10^3/uL (0.0-0.9); ABS Neutrophils 11.4 10^3/uL (1.5-7.6); ABS Nucleated RBC 0.01 10^3/ul; Hematocrit 37.9 % (35-45); Hemoglobin 12.7 g/dL (11.5-14.3); Lymphocyte % 2.7 %; Mean Corpuscular Hemoglobin 31.3 pg (27-33); Mean Corpuscular Hgb Conc 33.4 g/dL (31-36); Mean Corpuscular Volume 93.8 fL (80-97); Mean Platelet Volume 7.8 fL (7.5-11.2); Platelet Count 247 10^3/uL (150-450); Red Blood Count 4.05 10^6/uL (3.63-4.92); Red Cell Distribution Width 14.7 % (12-17)
[2023-05-12] MEDS ORDERED: Ondansetron 4 mg VIAL 2 MG/ML 2 ml VIAL ONE (17:57)
[2023-05-12 18:10] LABS: ALT 14 U/L (7-52); AST 19 U/L (13-39); Albumin 4.5 g/dL (3.2-5.2); Albumin/Globulin Ratio 1.7 (1-3); Alcohol, S < 13 mg/dL (<13); Alkaline Phosphatase 65 U/L (35-149); Anion Gap 17 mmol/L (2-16); Blood Urea Nitrogen 6 mg/dL (6-24); CO2 Carbon Dioxide 15 mmol/L (22-32); Calcium 8.3 mg/dL (8.6-10.3); Carbamazepine 3.8 mcg/mL (4.0-12.0); Chloride 103 mmol/L (101-111); Creatine Kinase 173 U/L (10-223); Creatinine, Serum 0.74 mg/dL (0.51-0.95); Globulin 2.7 g/dL (2-4); Glucose 166 mg/dL (70-100); HCG Pregnancy < 0.60 mIU/mL; Magnesium 2.2 mg/dL (1.9-2.7); Potassium 3.2 mmol/L (3.5-5.0); Sodium 135 mmol/L (135-145); Total Bilirubin 0.2 mg/dL (0.2-1.0); Total Protein 7.2 g/dL (6.4-8.9); eGFR CKD-EPI 104.2 (>60)
[2023-05-12] MEDS: Lactated Ringers 1000 ml BAG 1,000 ML IV ONE ×2 (18:49→19:20)
[2023-05-12] MEDS: Ondansetron 4 mg VIAL 2 MG/ML 2 ml VIAL IV ONE (18:56)
[2023-05-12] MEDS ORDERED: Midazolam 5 mg/ml concentrated 5 mg/ml 1 ml VIAL ONE ×2 (21:16→23:06)
[2023-05-12] MEDS: Midazolam 2 mg/2 ml VIAL 1 mg/ml 2 ml VIAL (2 mg) IM ONE ×2 (21:20→23:30)
[2023-05-13 01:39] LABS: Urine Benzodiazepine Screen Presumptive Positive (None Detect); Urine Cannabinoids Screen Presumptive Positive (None Detect); Urine Opiates Screen None Detected (None Detect)
[2023-05-13 06:15] LABS: ABS Monocytes 0.5 10^3/uL (0.0-0.9); ABS Neutrophils 6.7 10^3/uL (1.5-7.6); ABS Nucleated RBC 0.01 10^3/ul; Hematocrit 37.1 % (35-45); Hemoglobin 12.6 g/dL (11.5-14.3); Lymphocyte % 12.2 %; Mean Corpuscular Hemoglobin 31.4 pg (27-33); Mean Corpuscular Hgb Conc 34.1 g/dL (31-36); Mean Corpuscular Volume 92.2 fL (80-97); Mean Platelet Volume 8.1 fL (7.5-11.2); Nucleated Red Blood Cells % 0.1 %/100WBC (0.0-0.8); Platelet Count 183 10^3/uL (150-450); Red Blood Count 4.03 10^6/uL (3.63-4.92); Red Cell Distribution Width 14.5 % (12-17); White Blood Count 8.3 10^3/uL (3.8-11.8)
[2023-05-13 06:17] LABS: Urine Appearance Clear; Urine Bilirubin Negative (Negative); Urine Blood Trace (Negative); Urine Color Light-Yellow; Urine Glucose Negative (Negative); Urine Ketones 1+ (Negative); Urine Nitrite Negative (Negative); Urine Protein Negative (Negative); Urine Specific Gravity 1.016 (1.002-1.030); Urine Urobilinogen Negative (Negative); Urine pH 5.5 (5.0-8.0)
[2023-05-13 06:45] LABS: Anion Gap 7 mmol/L (2-16); Blood Urea Nitrogen 6 mg/dL (6-24); CO2 Carbon Dioxide 26 mmol/L (22-32); Calcium 9.1 mg/dL (8.6-10.3); Chloride 102 mmol/L (101-111); Creatinine, Serum 0.55 mg/dL (0.51-0.95); Glucose 97 mg/dL (70-100); Sodium 135 mmol/L (135-145)
[2023-05-13 10:13] LABS: Vitamin B12 226 pg/mL (180-914)
[2023-05-13] MEDS: Buprenorp/Nalox 8-2 MG FILM SL SCH (14:11)
[2023-05-13 15:16] LABS: Potassium, Whole Blood 3.9 mmol/L (3.4-4.5)
[2023-05-14 10:11] VITALS: BP 132/82
[2023-05-14] MEDS: Cyanocobalamin INJ 1,000 MCG/ML VIAL 1 ML VIAL IM ONE (10:52)
== END 2023-05-14 12:50 | disposition home or self-care (01) ==
LOC: EDHOLD 17:02 → ED 17:02 → SUATTDRO 05-13 05:02 → MEDTELE 05-13 11:53
PROVIDERS: ADMIT Internal Medicine; ATTEND Student in an Organized Health Care Education/Training Program